=== PATIENT | male | born 1995 | race Caucasian/White ===

== ENCOUNTER 2016-09-29 00:25 | Emergency (ER) | payer OTHER ==
[2016-09-29 00:44] VITALS: BP 127/83
[2016-09-29] MEDS ORDERED: Tetracaine 0.5% Ophth Soln 15 ML Bottle EYELF STA (00:52)
[2016-09-29] MEDS ORDERED: Gentamicin 0.3% Ophth Soln 5 ML Bottle ONE (00:57)
--- NOTE | 2016-09-29 01:02 | EDM.PDOC ---
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 Denied trauma/FB, has itching in his left eye and his left eye is reddish(?)No Other medical issues at this time. Visual acuity was 20/20 bilat. Symptom Onset Date: 09/28/16 Symptom Onset Time: 21:00 Timing/Duration: Reports: Sudden onset Location: left eye Quality: Reports: Burning Severity: mild Improves with: Reports: None Worsens with: Reports: None Associated Symptoms (Eye): Reports: burning, itching - Related Data Allergies/ADRs: Allergies No Known Allergies Allergy (Verified 04/04/16 07:41) Home Meds: Ambulatory Orders Medication Instructions Recorded Confirmed Citalopram Hydrobromide [Celexa] 20 mg PO DAILY 09/09/15 09/29/16 Lisdexamfetamine [Vyvanse] 50 mg PO DAILY 09/09/15 09/29/16 Minocycline [Minocin] 100 mg PO DAILY 09/09/15 09/29/16 Past Medical History Other HEENT History: 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 Cardiovascular History: Reports: Heart murmur Respiratory History: Reports: Asthma, Other (see below) Other Respiratory History: as an only Gastrointestinal History: Reports: None Genitourinary History: Reports: None Musculoskeletal History: Reports: Other (see below) Other Musculoskeletal History: fractured hip 2014 Neurological History: Reports: Concussion, Headaches, chronic Psychiatric History: Reports: ADHD, Anxiety, Depression Endocrine/Metabolic History: Reports: None Hematologic History: Reports: None Immunologic History: Reports: None Oncologic (Cancer) History: Reports: None Dermatologic History: Reports: Other (see below) Other Dermatologic History: acne - Infectious Disease History Infectious Disease History: Reports: None - Past Surgical History Head Surgeries/Procedures: Reports: None GI Surgical History: Reports: None Endocrine Surgical History: Reports: None Musculoskeletal Surgical History: Reports: Other (see below) Other Musculoskeletal Surgeries/Procedures:: hip pinning Social & Family History - Family History Family Medical History: Noncontributory - Tobacco Use Smoking Status *Q: Current Every Day Smoker Years of Tobacco use: 3 Packs/Tins Daily: 0.3 Second Hand Smoke Exposure: Yes - Caffeine Use Caffeine Use: Reports: Soda - Alcohol Use Days Per Week of Alcohol Use: 2 Number of Drinks Per Day: 5 Total Drinks Per Week: 10 - Recreational Drug Use Recreational Drug Use: No ED ROS GENERAL - Review of Systems Review Of Systems: See Below Constitutional: Reports: no symptoms HEENT: Reports: Eye pain Respiratory: Reports: No Symptoms Cardiovascular: Reports: No symptoms Endocrine: Reports: no symptoms GI/Abdominal: Reports: No symptoms : Reports: no symptoms Musculoskeletal: Reports: no symptoms Skin: Reports: no symptoms Neurological: Reports: No Symptoms Hematologic/Lymphatic: Reports: no symptoms Immunologic: Reports: no symptoms ED EXAM GENERAL W FULL EYE - Physical Exam Exam: See Below Exam Limited By: No limitations General Appearance: alert, WD/WN, mild distress Eye Exam: left eye: conjunctival injection, bilateral eye: normal fundi Visual acuity (R) 20/: 20 Visual acuity (L) 20/: 20 With Correction: No Eyelids: left: lid everted for exam, bilateral: normal appearance Conjunctiva & Sclera: left: injected Cornea Exam: left: examined with flourescein (neg) Extraocular Movements: bilateral: intact Pupils: normal accommodation Pupillary Size: bilateral: 3 mm Pupillary Reaction: bilateral: brisk Anterior Chamber: bilateral: normal appearance Posterior Chamber: bilateral: normal funduscopic Ears: normal external exam, normal canal Nose: normal inspection, normal mucosa Throat/Mouth: Normal inspection, Normal lips, Normal teeth, Normal oropharynx Head: atraumatic, normocephalic Neck: normal inspection, supple, non-tender Respiratory/Chest: no respiratory distress, lungs clear, normal breath sounds, no accessory muscle use, chest non-tender Cardiovascular: normal peripheral pulses, regular rate, rhythm GI/Abdominal: normal bowel sounds, soft, non tender, no organomegaly (Male) Exam: Deferred (Female) Exam: Deferred Rectal (Males) Exam: Normal exam Rectal (Female) Exam: Deferred Back Exam: normal inspection, full range of motion Extremities: normal inspection, normal range of motion Neurological: alert, oriented, CN II-XII intact, normal cognition Psychiatric: normal affect, normal mood Skin Exam: Warm, Dry, Intact, Normal color, No rash Lymphatic: no adenopathy Course - Vital Signs Text/Narrative:: 21 years old w rebeca came to the ed due to 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 Denied trauma/FB, has itching in his left eye and his left eye is reddish(?)No Other medical issues at this time. Visual acuity was 20/20 bilat. Flouroscein test neg PE: Viral conjunctivitis left eye Impression: Viral conjunctivitis Tx: Gentamycin to prevent bacterial superinfection Plan: D/C with instructions Last Recorded V/S: Last Vital Signs Temp 36.9 C 09/29/16 00:30 Pulse 94 09/29/16 00:30 Resp 17 09/29/16 00:30 BP 127/83 09/29/16 00:30 Pulse Ox 100 09/29/16 00:30 - Orders/Labs/Meds Orders: Active Orders 24 hr Category Date Time Status Gentamicin [Garamycin 0.3% Ophth Soln] Med 09/29/16 09:00 Active 0.01 ml EYEBOTH TID Medication Orders Gentamicin Sulfate (Garamycin 0.3% Ophth Soln) 0.01 ml EYEBOTH TID RENA Meds: Medications Generic Name Dose Route Start Last Admin Trade Name Freq PRN Reason Stop Dose Admin Gentamicin Sulfate 0.01 ml 09/29/16 09:00 Garamycin 0.3% Ophth Soln EYEBOTH TID RENA Discontinued Medications Generic Name Dose Route Start Last Admin Trade Name Freq PRN Reason Stop Dose Admin Tetracaine 0.1 ml 09/29/16 00:52 Tetracaine 0.5% Ophth Soln EYELF 09/29/16 00:53 ASDIRECTED STA Departure - Departure Time of Disposition: 01:03 Disposition: Home, Self-Care 01 Condition: good Clinical Impression: Conjunctivitis Qualifiers: Conjunctivitis type: acute Acute conjunctivitis type: viral Laterality: left Qualified Code(s): B30.9 - Viral conjunctivitis, unspecified Instructions: Viral Conjunctivitis Referrals: PCP,None [Primary Care Provider] - Forms: ED Department Discharge Additional Instructions: Please apply the eye drops as recommended, please follow up, please come back to the ed if symptoms get worse acutely. - My Orders Last 24 Hours: My Active Orders 09/29/16 09:00 Gentamicin [Garamycin 0.3% Ophth Soln] 0.01 ml EYEBOTH TID - Assessment/Plan Last 24 Hours: My Active Orders 09/29/16 09:00 Gentamicin [Garamycin 0.3% Ophth Soln] 0.01 ml EYEBOTH TID
[2016-09-29] MEDS ORDERED: Gentamicin 0.3% Ophth Soln 5 ML Bottle EYEBOTH SCH (09:00)
== END 2016-09-29 01:13 | disposition home or self-care (01) ==
LOC: FB.ED 00:25
DX: B30.9 Viral conjunctivitis, unspecified (principal); J45.909 Unspecified asthma, uncomplicated; F41.9 Anxiety disorder, unspecified; F32.9 Major depressive disorder, single episode, unspecified; F17.210 Nicotine dependence, cigarettes, uncomplicated; Z79.899 Other long term (current) drug therapy
CPT/HCPCS: 99282; A9270

== ENCOUNTER 2018-01-10 01:38 | Emergency (ER) | payer OTHER ==
--- NOTE | 2018-01-10 02:10 | EDM.PDOC ---
ED HPI GENERAL MEDICAL PROBLEM - General Stated Complaint: RT SHOULDER PAIN Time Seen by Provider: 01/10/18 01:38 Source of Information: Reports: Patient, Family History Limitations: Reports: No Limitations - History of Present Illness INITIAL COMMENTS - FREE TEXT/NARRATIVE: 22 y.o.w.m came to the ed a few hours after he was wrestling with a friend and injured his right shoulder. Pt could not sleep becaus eof pain and thought his right shoulder "broke" which brought him to the ed. Pt has limited of his right shoulder due to pain. No other acute medical issues, no N/V/D of dizziness. BP 132/73 Pulse 75 RR 16 Pulse ox 98% on RA Temp 98.6 Onset Date: 01/09/18 Onset Time: 21:00 Duration: Hour(s):, Constant Location: Reports: Upper Extremity, Right Quality: Reports: Ache, Burning, Dull Severity: Mild Improves with: Reports: Rest Worsens with: Reports: Movement Context: Reports: Trauma Associated Symptoms: Reports: No Other Symptoms - Related Data Allergies Allergy/AdvReac Type Severity Reaction Status Date / Time No Known Allergies Allergy Verified 04/04/16 07:41 Home Meds: Home Meds Citalopram Hydrobromide [Celexa] 20 mg PO DAILY 09/09/15 [History] Lisdexamfetamine [Vyvanse] 50 mg PO DAILY 09/09/15 [History] Minocycline [Minocin] 100 mg PO DAILY 09/09/15 [History] Past Medical History Other HEENT History: 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 Cardiovascular History: Reports: Heart Murmur Respiratory History: Reports: Asthma, Other (See Below) Other Respiratory History: as an infant only Gastrointestinal History: Reports: None Genitourinary History: Reports: None Musculoskeletal History: Reports: Other (See Below) Other Musculoskeletal History: fractured hip 2014 Neurological History: Reports: Concussion, Headaches, Chronic Psychiatric History: Reports: ADHD, Anxiety, Depression Endocrine/Metabolic History: Reports: None Hematologic History: Reports: None Immunologic History: Reports: None Oncologic (Cancer) History: Reports: None Dermatologic History: Reports: Other (See Below) Other Dermatologic History: acne - Infectious Disease History Infectious Disease History: Reports: None - Past Surgical History Musculoskeletal Surgical History: Reports: Other (See Below) Social & Family History - Family History Family Medical History: Noncontributory - Caffeine Use Caffeine Use: Reports: Soda Review of Systems - Review of Systems Review Of Systems: See Below Constitutional: Reports: No Symptoms Eyes: Reports: No Symptoms Ears: Reports: No Symptoms Nose: Reports: No Symptoms Mouth/Throat: Reports: No Symptoms Respiratory: Reports: No Symptoms Cardiovascular: Reports: No Symptoms GI/Abdominal: Reports: No Symptoms Genitourinary: Reports: No Symptoms Musculoskeletal: Reports: Joint Pain (right shoulder) Skin: Reports: No Symptoms Neurological: Reports: No Symptoms Psychiatric: Reports: No Symptoms ED EXAM, GENERAL - Physical Exam Exam: See Below Exam Limited By: No Limitations General Appearance: Alert, WD/WN, Mild Distress Eye Exam: Bilateral Eye: Normal Inspection Ears: Normal External Exam Ear Exam: Bilateral Ear: Auricle Normal Nose: Normal Inspection, Normal Mucosa, No Blood Throat/Mouth: Normal Inspection, Normal Lips, Normal Teeth, Normal Gums, Normal Voice, No Airway Compromise Head: Atraumatic, Normocephalic Neck: Normal Inspection, Supple, Non-Tender, Full Range of Motion Respiratory/Chest: No Respiratory Distress, Lungs Clear, Normal Breath Sounds, Chest Non-Tender Cardiovascular: Normal Peripheral Pulses, Regular Rate, Rhythm, No Edema, No Gallop, No Rub Peripheral Pulses: 1+: Brachial (L) GI/Abdominal: Normal Bowel Sounds, Soft, Non-Tender, No Organomegaly, No Abnormal Bruit, No Mass, Pelvis Stable (Male) Exam: Deferred Rectal (Males) Exam: Deferred Back Exam: Normal Inspection, Full Range of Motion Extremities: Normal Inspection, Normal Range of Motion, Non-Tender, No Pedal Edema Neurological: Alert, Oriented, CN II-XII Intact, Normal Cognition, Normal Gait, No Motor/Sensory Deficits Psychiatric: Normal Affect, Normal Mood Skin Exam: Warm, Dry, Intact, Normal Color, No Rash Lymphatic: No Adenopathy Course - Vital Signs Text/Narrative:: 22 y.o.w.m came to the ed a few hours after he was wrestling with a friend and injured his right shoulder. Pt could not sleep becaus eof pain and thought his right shoulder "broke" which brought him to the ed. Pt has limited of his right shoulder due to pain. No other acute medical issues, no N/V/D of dizziness. BP 132/73 Pulse 75 RR 16 Pulse ox 98% on RA Temp 98.6\\ PE: WNWD W M with Right shoulder pain with movement Imaging: X Ray left shoulder/clavicula: NAD Impression: Left shoulder sprain Tx: ICE, Motrin, armsling Reexam: Improved Plan: D/C with instructions - Orders/Labs/Meds Orders: Active Orders 24 hr Category Date Time Status Shoulder Comp Rt [CR] Stat Exams 01/10/18 02:10 Taken Meds: Medications Discontinued Medications Generic Name Dose Route Start Last Admin Trade Name Eduardo PRN Reason Stop Dose Admin Ibuprofen 600 mg 01/10/18 02:19 01/10/18 02:29 Motrin PO 01/10/18 02:20 600 mg ONETIME ONE Administration Departure - Departure Time of Disposition: 02:20 Disposition: Home, Self-Care 01 Condition: Good Clinical Impression: Sprain of shoulder, right Qualifiers: Encounter type: initial encounter Shoulder sprain type: unspecified sprain Qualified Code(s): S43.401A - Unspecified sprain of right shoulder joint, initial encounter - Discharge Information Instructions: Shoulder Sprain Referrals: PCP,None [Primary Care Provider] - Additional Instructions: Please apply ice to right shoulder, please take motrin for pain, use arm sling for support, please f/u, come back if your symptoms get worse acutely - My Orders Last 24 Hours: My Active Orders 01/10/18 02:10 Shoulder Comp Rt [CR] Stat - Assessment/Plan Last 24 Hours: My Active Orders 01/10/18 02:10 Shoulder Comp Rt [CR] Stat
[2018-01-10] MEDS ORDERED: Ibuprofen 600 MG Tab PO ONE (02:19)
[2018-01-10 08:43] VITALS: BP 132/73
--- NOTE | 2018-01-10 11:04 | CR ---
INDICATION: Injury, pain in mid clavicle. RIGHT SHOULDER: Six images of the right shoulder were obtained in 4 projections and revealed no significant bone or joint abnormality. No fracture or dislocation was seen. If symptoms persist - if occult fracture site is suspected clinically, re- examination in 10-14 days may be helpful. If soft tissue injury is suspected clinically, CT or MRI may be helpful. MTDD
== END 2018-01-10 02:35 | disposition home or self-care (01) ==
LOC: FB.ED 01:38
DX: S43.401A Unspecified sprain of right shoulder joint, initial encounter (principal); J45.909 Unspecified asthma, uncomplicated; Z79.899 Other long term (current) drug therapy; F41.9 Anxiety disorder, unspecified; F32.9 Major depressive disorder, single episode, unspecified; X58.XXXA Exposure to other specified factors, initial encounter; Y93.72 Activity, wrestling
CPT/HCPCS: 73030; 99283; A9270

== ENCOUNTER 2021-05-22 17:00 | Emergency (ER) | payer BC, OTHER ==
[2021-05-22 17:27] VITALS: BP 131/86; PULSE 63
[2021-05-22] MEDS ORDERED: Sodium Chloride 0.9% 10 ML Syringe FLUSH PRN (17:30)
[2021-05-22] MEDS ORDERED: Ketorolac 30 MG/ML SDV IVPUSH STA (17:32)
[2021-05-22] MEDS ORDERED: Ondansetron 4 MG/2 ML SDV IVPUSH STA (17:32)
[2021-05-22] MEDS ORDERED: Sodium Chloride 0.9% 1,000 ML IV SCH (17:45)
[2021-05-22] MEDS ORDERED: Sulfamethoxazole/Trimethoprim 800-160 MG Tab PO STA (18:36)
--- NOTE | 2021-05-22 18:36 | EDM.PDOC ---
ED HPI GENERAL MEDICAL PROBLEM - General Chief Complaint: Abdominal Pain Stated Complaint: STOMACH,LIVER PAIN/BLOOD IN URINE Time Seen by Provider: 05/22/21 17:10 Source of Information: Reports: Patient History Limitations: Reports: No Limitations - History of Present Illness INITIAL COMMENTS - FREE TEXT/NARRATIVE: Patient presented to the ED because Rt flank pain, chills,nausea but no vomiting for 2 days. The pain is 7/10, had hematuria today which resolved. He also had loose stools but no abdominal pain. 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 Cardiovascular History: Reports: Heart Murmur Respiratory History: Reports: Asthma, Other (See Below) Other Respiratory History: as an only Gastrointestinal History: Reports: None Genitourinary History: Reports: None Musculoskeletal History: Reports: Other (See Below) Other Musculoskeletal History: fractured hip 2013 Neurological History: Reports: Concussion, Headaches, Chronic Psychiatric History: Reports: ADHD, Anxiety, Depression Endocrine/Metabolic History: Reports: None Hematologic History: Reports: None Immunologic History: Reports: None Oncologic (Cancer) History: Reports: None Dermatologic History: Reports: Other (See Below) Other Dermatologic History: acne - Infectious Disease History Infectious Disease History: Reports: None - Past Surgical History Head Surgeries/Procedures: Reports: None GI Surgical History: Reports: None Endocrine Surgical History: Reports: None Musculoskeletal Surgical History: Reports: Other (See Below) Other Musculoskeletal Surgeries/Procedures:: Surgery for fractured left hip, 2013. Social & Family History - Family History Family Medical History: No Pertinent Family History - Tobacco Use Tobacco Use Status *Q: Never Tobacco User - Caffeine Use Caffeine Use: Reports: Coffee, Energy Drinks, Soda - Recreational Drug Use Recreational Drug Use: Yes Recreational Drug Type: Reports: Marijuana/Hashish ED ROS GENERAL - Review of Systems Review Of Systems: See Below Constitutional: Reports: No Symptoms HEENT: Reports: No Symptoms Respiratory: Reports: No Symptoms Cardiovascular: Reports: No Symptoms Endocrine: Reports: No Symptoms GI/Abdominal: Reports: Abdominal Pain : Reports: No Symptoms Musculoskeletal: Reports: No Symptoms Skin: Reports: No Symptoms Neurological: Reports: No Symptoms Psychiatric: Reports: No Symptoms Hematologic/Lymphatic: Reports: No Symptoms ED EXAM, GI/ABD - Physical Exam Exam: See Below Exam Limited By: No Limitations General Appearance: Alert, No Apparent Distress Ears: Normal External Exam, Normal Canal Nose: Normal Inspection, Normal Mucosa, No Blood Throat/Mouth: Normal Inspection, Normal Lips, Normal Teeth, Normal Gums, Normal Oropharynx, Normal Voice Head: Atraumatic, Normocephalic Neck: Normal Inspection, Supple, Non-Tender, Full Range of Motion Respiratory/Chest: No Respiratory Distress, Lungs Clear, Normal Breath Sounds, No Accessory Muscle Use, Chest Non-Tender Cardiovascular: Normal Peripheral Pulses, Regular Rate, Rhythm, No Edema, No Gallop, No JVD, No Murmur, No Rub GI/Abdominal Exam: Normal Bowel Sounds, Soft, No Distention, Other (RCVAT) Back Exam: Normal Inspection, Full Range of Motion Extremities: Normal Inspection, Normal Range of Motion, No Pedal Edema Neurological: Alert, Oriented, CN II-XII Intact Course - Vital Signs Text/Narrative:: Lab/Abd-pelvis Ct result was reviewed and discussed with patient NS 1 L bolus Zofran 4 mg Iv x1 Toradol 30 mg IV x1 Bactrim DS 1 PO x 1 Last Recorded V/S: Last Vital Signs Temp 35.9 C L 05/22/21 17:01 Pulse 63 05/22/21 17:01 Resp 20 05/22/21 17:01 BP 131/86 05/22/21 17:01 Pulse Ox 100 05/22/21 17:01 - Orders/Labs/Meds Orders: Active Orders 24 hr Category Date Time Status Abdomen Pelvis wo Cont [CT] Stat Exams 05/22/21 17:31 Taken CULTURE URINE [RM] Stat Lab 05/22/21 17:18 Received Saline Lock Insert [OM.PC] Routine Oth 05/22/21 17:30 Ordered Labs: Laboratory Tests 05/22/21 05/22/21 05/22/21 Range/Units 17:18 17:42 17:42 WBC (3.2-10.1) x10-3/uL RBC (3.90-5.90) x10(6)uL Hgb (12.9-17.7) g/dL Hct (38.3-50.1) % MCV (80.8-98.7) fL MCH (27.0-33.3) pg MCHC (28.7-35.3) g/dL RDW (12.4-15.0) % Plt Count (117-477) x10(3)uL MPV (6.7-11.0) fL Neut % (Auto) (40.3-71.8) % Lymph % (Auto) (15.8-45.3) % Starr % (Auto) (5.5-15.2) % Eos % (Auto) (0.1-6.8) % Baso % (Auto) (0.3-3.8) % Neut # (Auto) (1.7-6.9) x10-3/uL Lymph # (Auto) (0.5-4.5) x10-3/uL Starr # (Auto) (0.0-1.2) x10-3/uL Eos # (Auto) (0.0-0.6) x10-3/uL Baso # (Auto) (0.0-0.3) x10-3/uL Sodium 138 (135-145) mmol/L Potassium 4.4 (3.5-5.3) mmol/L Chloride 101 (100-110) mmol/L Carbon Dioxide 29 (21-32) mmol/L BUN 23 H (7-18) mg/dL Creatinine 1.2 (0.70-1.30) mg/dL Est Cr Clr Drug Dosing 87.22 mL/min Estimated GFR (MDRD) > 60 (>60) BUN/Creatinine Ratio 19.2 (9-20) Glucose 94 (80-116) mg/dL Calcium 9.2 (8.6-10.2) mg/dL Total Bilirubin 0.3 (0.1-1.3) mg/dL AST 23 (5-25) IU/L ALT 80 H (12-36) U/L Alkaline Phosphatase 102 (56-112) IU/L Total Protein 8.1 H (6.0-8.0) g/dL Albumin 4.3 (3.5-5.2) g/dL Globulin 3.8 g/dL Albumin/Globulin Ratio 1.1 Amylase 75 (25-115) U/L Lipase 70 L (73-393) U/L Urine Color Brown (YELLOW) Urine Appearance Cloudy (CLEAR) Urine pH 5.0 (5.0-6.5) Ur Specific Riner 1.020 (1.010-1.025) Urine Protein 100 H (NEGATIVE) mg/dL Urine Glucose (UA) Normal (NORMAL) mg/dL Urine Ketones 15 H (NEGATIVE) mg/dL Urine Occult Blood Large H (NEGATIVE) Urine Nitrite Positive H (NEGATIVE) Urine Bilirubin Small H (NEGATIVE) Urine Urobilinogen 1 H (NEGATIVE) mg/dL Ur Leukocyte Esterase Moderate H (NEGATIVE) Urine RBC Packed H (0-5) Urine WBC 5-10 H (0-5) Ur Squamous Epith Cells Few H (NS,R,O) Urine Bacteria Moderate H (NS) 05/22/ Range/Units 17:42 WBC 9.5 (3.2-10.1) x10-3/uL RBC 4.76 (3.90-5.90) x10(6)uL Hgb 14.5 (12.9-17.7) g/dL Hct 43.0 (38.3-50.1) % MCV 90.3 (80.8-98.7) fL MCH 30.5 (27.0-33.3) pg MCHC 33.8 (28.7-35.3) g/dL RDW 12.1 L (12.4-15.0) % Plt Count 289 (117-477) x10(3)uL MPV 8.9 (6.7-11.0) fL Neut % (Auto) 70.1 (40.3-71.8) % Lymph % (Auto) 19.3 (15.8-45.3) % Starr % (Auto) 7.6 (5.5-15.2) % Eos % (Auto) 2.4 (0.1-6.8) % Baso % (Auto) 0.6 (0.3-3.8) % Neut # (Auto) 6.6 (1.7-6.9) x10-3/uL Lymph # (Auto) 1.8 (0.5-4.5) x10-3/uL Starr # (Auto) 0.7 (0.0-1.2) x10-3/uL Eos # (Auto) 0.2 (0.0-0.6) x10-3/uL Baso # (Auto) 0.1 (0.0-0.3) x10-3/uL Sodium (135-145) mmol/L Potassium (3.5-5.3) mmol/L Chloride (100-110) mmol/L Carbon Dioxide (21-32) mmol/L BUN (7-18) mg/dL Creatinine (0.70-1.30) mg/dL Est Cr Clr Drug Dosing mL/min Estimated GFR (MDRD) (>60) BUN/Creatinine Ratio (9-20) Glucose (80-116) mg/dL Calcium (8.6-10.2) mg/dL Total Bilirubin (0.1-1.3) mg/dL AST (5-25) IU/L ALT (12-36) U/L Alkaline Phosphatase (56-112) IU/L Total Protein (6.0-8.0) g/dL Albumin (3.5-5.2) g/dL Globulin g/dL Albumin/Globulin Ratio Amylase (25-115) U/L Lipase (73-393) U/L Urine Color (YELLOW) Urine Appearance (CLEAR) Urine pH (5.0-6.5) Ur Specific Riner (1.010-1.025) Urine Protein (NEGATIVE) mg/dL Urine Glucose (UA) (NORMAL) mg/dL Urine Ketones (NEGATIVE) mg/dL Urine Occult Blood (NEGATIVE) Urine Nitrite (NEGATIVE) Urine Bilirubin (NEGATIVE) Urine Urobilinogen (NEGATIVE) mg/dL Ur Leukocyte Esterase (NEGATIVE) Urine RBC (0-5) Urine WBC (0-5) Ur Squamous Epith Cells (NS,R,O) Urine Bacteria (NS) Meds: Medications Discontinued Medications Generic Name Dose Route Start Last Admin Trade Name Freq PRN Reason Stop Dose Admin Sodium Chloride 1,000 mls @ 999 mls/hr 05/22/21 17:45 05/22/21 18:21 Normal Saline IV 999 mls/hr ASDIRECTED RENA Administration Ketorolac Tromethamine 30 mg 05/22/21 17:32 05/22/21 18:22 Ketorolac 30 Mg/Ml Sdv IVPUSH 05/22/21 17:33 30 mg NOW STA Administration Ondansetron HCl 4 mg 05/22/21 17:32 05/22/21 18:22 Ondansetron 4 Mg/2 Ml Sdv IVPUSH 05/22/21 17:33 4 mg NOW STA Administration Sodium Chloride 10 ml 05/22/21 17:30 05/22/21 18:20 Sodium Chloride 0.9% 10 Ml Syringe FLUSH 10 ml ASDIRECTED PRN Administration Keep Vein Open Trimethoprim/Sulfamethoxazole 1 tab 05/22/21 18:36 05/22/21 19:08 Sulfamethoxazole/Trimethoprim 800-160 Mg Tab PO 05/22/21 18:37 1 tab NOW STA Administration Departure - Departure Time of Disposition: 18:35 Disposition: Home, Self-Care 01 Condition: Good Clinical Impression: UTI (urinary tract infection), Abdominal pain - Discharge Information Prescriptions: Sulfamethoxazole/Trimethoprim [Bactrim Ds Tablet] 1 each PO BID #7 tablet Instructions: Urinary Tract Infection, Adult, [id number], Abdominal Pain, Adult, [id number] Referrals: Aydin Muse MD [Primary Care Provider] - Forms: ED Department Discharge Additional Instructions: please read discharge instructions on UTI and abdominal pain Drink lots of fluids Bactrim DS twice daily for 7 days Ibuprofen 800 mg with tylenol 1000 mg every 8 hours as needed for pain Folow up as needed Sepsis Event Note (ED) - Evaluation Sepsis Screening Result: No Definite Risk - Focused Exam Vital Signs: Vital Signs Temp Pulse Resp BP Pulse Ox 05/22/21 17:01 35.9 C L 63 20 131/86 100 - My Orders Last 24 Hours: My Active Orders 05/22/21 17:18 CULTURE URINE [RM] Stat 05/22/21 17:30 Saline Lock Insert [OM.PC] Routine 05/22/21 17:31 Abdomen Pelvis wo Cont [CT] Stat - Assessment/Plan Last 24 Hours: My Active Orders 05/22/21 17:18 CULTURE URINE [RM] Stat 05/22/21 17:30 Saline Lock Insert [OM.PC] Routine 05/22/21 17:31 Abdomen Pelvis wo Cont [CT] Stat
== END 2021-05-22 19:14 | disposition home or self-care (01) ==
LOC: FB.ED 17:00 → EDSEX 17:00 → FB.ED 19:14
DX: N39.0 Urinary tract infection, site not specified (principal)
CPT/HCPCS: 36415; 74176; 80053; 81001; 82150; 83690; 85025; 87086; 96374; 96375; 99284-25; A9270-GY; J1885; J2405; J7030

== ENCOUNTER 2021-05-23 08:47 | Observation (INO) | payer BC ==
--- NOTE | 2021-05-23 09:08 | EDM.PDOC ---
ED HPI GENERAL MEDICAL PROBLEM - General Chief Complaint: Flank Pain Stated Complaint: liver/kidney problem Time Seen by Provider: 05/23/21 09:00 Source of Information: Reports: Patient History Limitations: Reports: No Limitations - History of Present Illness INITIAL COMMENTS - FREE TEXT/NARRATIVE: 26-year-old female (male transitioning to female) who presents to the emergency department this morning via private vehicle with a friend secondary to severe right mid back and flank and abdominal pain. She actually presented to the walk- in clinic and was sent directly from there to our emergency department. She reports that the pain began at 7 AM and was associated with diaphoresis and nausea but no vomiting. The pain is been a constant pain and she rates it as a 10/10. He did have a bowel movement this morning that was normal she reports she initially developed the pain about 3 days ago and it was mild and intermittent. She was seen here yesterday in the emergency department secondary to the right mid back, flank and abdominal pain and it was associated with hematuria. The hematuria has also been intermittent over the past 3 days as well. She had a fairly complete workup which included blood tests, urine test and a CT scan of her abdomen and pelvis. The blood tests were all reassuringly normal. Urinalysis had a packed field of red blood cells, some white blood cells and bacteria. Currently this was not set up for culture yesterday but the specimen is still in the lab and I had the lab set up a culture on urine from yesterday. Today, the pain was much worse than yesterday. She does report a history of previous kidney stones. She has subjectively had a fever and some chills but from what she describes it sounds like she is describing the diaphoretic episode that she has been intermittently having as well. Been no measured fever at home. The patient has received Toradol 30 mg IV and Zofran 4 mg IV and she is now reporting the pain is an 8/10. I reviewed the patient's records and the patient is currently getting Dilaudid 1 mg IV. No cough. No rashes. No dysuria. There are no other associated signs or symptoms. There are no other modifying factors. Onset: Other (3 days ago) Duration: Getting Worse Location: Reports: Abdomen, Back, Other (Right mid back right flank and right abdomen) Quality: Reports: Sharp, Stabbing Severity: Severe Improves with: Reports: None Worsens with: Reports: Other (Palpation of the area) Context: Reports: Other (As above) Associated Symptoms: Reports: No Other Symptoms (Nothing except as above) Treatments PUMP ASSEMBLER: Reports: Other (see below) (Nothing today. The patient did take Bactrim DS one yesterday in the emergency department.) Right Flank Pain Score (Numeric/FACES): 10 - Related Data Allergies Allergy/AdvReac Type Severity Reaction Status Date / Time No Known Allergies Allergy Verified 01/10/18 08:40 Home Meds: Home Meds Citalopram Hydrobromide [Celexa] 40 mg PO DAILY 05/22/21 [History] Sulfamethoxazole/Trimethoprim [Bactrim Ds Tablet] 1 each PO BID #7 tablet 05/22/21 [Rx] estradioL [Estradiol] 2 mg PO DAILY 05/22/21 [History] Past Medical History Cardiovascular History: Reports: Heart Murmur Respiratory History: Reports: Asthma Genitourinary History: Reports: Renal Calculus Musculoskeletal History: Reports: Fracture (fractured hip 2013) Neurological History: Reports: Concussion, Headaches, Chronic Psychiatric History: Reports: ADHD, Anxiety, Depression Dermatologic History: Reports: Other (See Below) Other Dermatologic History: acne - Infectious Disease History Infectious Disease History: Reports: None - Past Surgical History Musculoskeletal Surgical History: Reports: Other (See Below) Other Musculoskeletal Surgeries/Procedures:: Surgery for fractured left hip, 2013. Social & Family History - Tobacco Use Tobacco Use Status *Q: Never Tobacco User - Caffeine Use Caffeine Use: Reports: Coffee, Energy Drinks, Soda - Alcohol Use Alcohol Use History: Yes Alcohol Use in Last Twelve Months: Yes Alcohol Use Comment: States no alcohol use for the past week. 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 On HRT. ED ROS GENERAL - Review of Systems Review Of Systems: See Below Constitutional: Reports: Chills, Diaphoresis HEENT: Denies: Nose Pain, Throat Pain Respiratory: Denies: Shortness of Breath, Wheezing Cardiovascular: Denies: Chest Pain, Lightheadedness Endocrine: Denies: Fatigue GI/Abdominal: Reports: Abdominal Pain, Nausea. Denies: Vomiting : Reports: Flank Pain, Hematuria. Denies: Dysuria Musculoskeletal: Reports: Back Pain (Right mid back) Skin: Reports: Diaphoresis. Denies: Rash, Wound Neurological: Denies: Confusion, Dizziness Hematologic/Lymphatic: Denies: Easy Bleeding, Easy Bruising ED EXAM, GI/ABD - Physical Exam Exam: See Below Exam Limited By: No Limitations General Appearance: Alert, WD/WN, Severe Distress (Appears in severe pain. No respiratory distress.) Eyes: Bilateral: Normal Appearance, EOMI Ears: Normal External Exam, Hearing Grossly Normal Nose: Normal Inspection, Normal Mucosa, No Blood Throat/Mouth: Normal Inspection, Normal Lips, Normal Oropharynx, Normal Voice, No Airway Compromise Head: Atraumatic, Normocephalic Neck: Normal Inspection, Supple, Non-Tender, Full Range of Motion Respiratory/Chest: No Respiratory Distress, Lungs Clear, Normal Breath Sounds, No Accessory Muscle Use, Chest Non-Tender Cardiovascular: Normal Peripheral Pulses, Regular Rate, Rhythm, No Murmur GI/Abdominal Exam: Normal Bowel Sounds, Soft, No Mass, Tender (Tender in the right midabdomen). No: Guarding, Rebound Back Exam: Full Range of Motion, CVA Tenderness (R). No: Muscle Spasm Extremities: Normal Inspection, Normal Range of Motion, Non-Tender, Normal Capillary Refill, No Pedal Edema Neurological: Alert, Oriented, CN II-XII Intact, Normal Cognition, No Motor/Sensory Deficits Psychiatric: Normal Affect Skin Exam: Intact, Normal Color, No Rash, Cool, Diaphoretic Course - Vital Signs Last Recorded V/S: Last Vital Signs Temp 36.7 C 05/23/21 08:47 Pulse 105 H 05/23/21 08:47 Resp 20 05/23/21 08:47 BP 134/98 H 05/23/21 08:47 Pulse Ox 100 05/23/21 08:47 - Orders/Labs/Meds Orders: Active Orders 24 hr Category Date Time Status Admission Status [Patient Status] [ADT] Routine ADT 05/23/21 12:27 Ordered Abdomen Pelvis w Cont [CT] Stat Exams 05/23/21 10:42 Taken CORONAVIRUS COVID-19 MAGY [MOLEC] Stat Lab 05/23/21 10:52 Received CULTURE URINE [RM] Stat Lab 05/23/21 09:20 Received Promethazine [Phenergan] 25 mg Med 05/23/21 12:23 Ordered Sodium Chloride 0.9% [Normal Saline] 50 ml IV ONETIME Sodium Chloride 0.9% [Normal Saline] 1,000 ml Med 05/23/21 10:30 Active IV ASDIRECTED Tamsulosin [Flomax] Med 05/23/21 12:28 Once 0.4 mg PO ONETIME ONE Medication Orders Sodium Chloride (Normal Saline) 1,000 mls @ 150 mls/hr IV ASDIRECTED RENA Last Admin: 05/23/21 10:32 Dose: 150 mls/hr Documented by: KOSTAS Promethazine HCl 25 mg/ Sodium (Chloride) 51 mls @ 200 mls/hr IV ONETIME ONE Stop: 05/23/21 12:38 Tamsulosin HCl (Tamsulosin 0.4 Mg Cap.Er) 0.4 mg PO ONETIME ONE Stop: 05/23/21 12:29 Labs: Laboratory Tests 05/23/21 05/23/21 05/23/21 Range/Units 09:20 09:25 09:25 WBC 11.7 H (3.0-10.3) x10-3/uL RBC 4.66 (3.60-5.20) x10(6)uL Hgb 14.4 (11.4-15.5) g/dL Hct 42.4 (34.2-48.2) % MCV 91.0 (76.7-100.5) fL MCH 30.9 (23.9-33.9) pg MCHC 34.0 (31.9-34.8) g/dL RDW 12.2 L (12.3-16.5) % Plt Count 276 (151-488) x10(3)uL MPV 8.7 (7.1-12.4) fL Neut % (Auto) 82.3 H (30.8-76.2) % Lymph % (Auto) 10.0 L (18.4-52.1) % Alfalfa % (Auto) 5.7 (4.4-15.7) % Eos % (Auto) 1.5 (0.6-8.1) % Baso % (Auto) 0.5 (0.2-1.5) % Neut # (Auto) 9.6 H (1.5-6.3) x10-3/uL Lymph # (Auto) 1.2 (1.0-4.4) x10-3/uL Alfalfa # (Auto) 0.7 (0.3-1.0) x10-3/uL Eos # (Auto) 0.2 (0.0-0.8) x10-3/uL Baso # (Auto) 0.1 (0.0-0.1) x10-3/uL Sodium 139 (135-145) mmol/L Potassium 4.2 (3.5-5.3) mmol/L Chloride 105 (100-110) mmol/L Carbon Dioxide 25 (21-32) mmol/L BUN 18 (7-18) mg/dL Creatinine 1.3 H (0.55-1.02) mg/dL Est Cr Clr Drug Dosing 63.77 mL/min Estimated GFR (MDRD) 50 L (>60) BUN/Creatinine Ratio 13.8 (9-20) Glucose 107 (80-116) mg/dL Calcium 8.8 (8.6-10.2) mg/dL Magnesium 2.0 (1.8-2.5) mg/dL Total Bilirubin 0.3 (0.1-1.3) mg/dL AST 25 (5-25) IU/L ALT 73 H (12-36) U/L Alkaline Phosphatase 93 (56-112) IU/L C-Reactive Protein (0.5-0.9) mg/dL Total Protein 7.8 (6.0-8.0) g/dL Albumin 4.0 (3.5-5.2) g/dL Globulin 3.8 g/dL Albumin/Globulin Ratio 1.1 Urine Color Yellow (YELLOW) Urine Appearance Slightly cloudy (CLEAR) Urine pH 5.0 (5.0-6.5) Ur Specific [place] 1.020 (1.010-1.025) Urine Protein Negative (NEGATIVE) mg/dL Urine Glucose (UA) Normal (NORMAL) mg/dL Urine Ketones Negative (NEGATIVE) mg/dL Urine Occult Blood Moderate H (NEGATIVE) Urine Nitrite Negative (NEGATIVE) Urine Bilirubin Negative (NEGATIVE) Urine Urobilinogen Normal (NEGATIVE) mg/dL Ur Leukocyte Esterase Negative (NEGATIVE) Urine RBC 10-20 H (0-5) Urine WBC 5-10 H (0-5) Ur Squamous Epith Cells Moderate H (NS,R,O) Urine Bacteria Moderate H (NS) Urine Mucus Moderate H (NS) 11/19/21 Range/Units 09:25 WBC (3.0-10.3) x10-3/uL RBC (3.60-5.20) x10(6)uL Hgb (11.4-15.5) g/dL Hct (34.2-48.2) % MCV (76.7-100.5) fL MCH (23.9-33.9) pg MCHC (31.9-34.8) g/dL RDW (12.3-16.5) % Plt Count (151-488) x10(3)uL MPV (7.1-12.4) fL Neut % (Auto) (30.8-76.2) % Lymph % (Auto) (18.4-52.1) % Alfalfa % (Auto) (4.4-15.7) % Eos % (Auto) (0.6-8.1) % Baso % (Auto) (0.2-1.5) % Neut # (Auto) (1.5-6.3) x10-3/uL Lymph # (Auto) (1.0-4.4) x10-3/uL Alfalfa # (Auto) (0.3-1.0) x10-3/uL Eos # (Auto) (0.0-0.8) x10-3/uL Baso # (Auto) (0.0-0.1) x10-3/uL Sodium (135-145) mmol/L Potassium (3.5-5.3) mmol/L Chloride (100-110) mmol/L Carbon Dioxide (21-32) mmol/L BUN (7-18) mg/dL Creatinine (0.55-1.02) mg/dL Est Cr Clr Drug Dosing mL/min Estimated GFR (MDRD) (>60) BUN/Creatinine Ratio (9-20) Glucose (80-116) mg/dL Calcium (8.6-10.2) mg/dL Magnesium (1.8-2.5) mg/dL Total Bilirubin (0.1-1.3) mg/dL AST (5-25) IU/L ALT (12-36) U/L Alkaline Phosphatase (56-112) IU/L C-Reactive Protein 1.4 H (0.5-0.9) mg/dL Total Protein (6.0-8.0) g/dL Albumin (3.5-5.2) g/dL Globulin g/dL Albumin/Globulin Ratio Urine Color (YELLOW) Urine Appearance (CLEAR) Urine pH (5.0-6.5) Ur Specific [place] (1.010-1.025) Urine Protein (NEGATIVE) mg/dL Urine Glucose (UA) (NORMAL) mg/dL Urine Ketones (NEGATIVE) mg/dL Urine Occult Blood (NEGATIVE) Urine Nitrite (NEGATIVE) Urine Bilirubin (NEGATIVE) Urine Urobilinogen (NEGATIVE) mg/dL Ur Leukocyte Esterase (NEGATIVE) Urine RBC (0-5) Urine WBC (0-5) Ur Squamous Epith Cells (NS,R,O) Urine Bacteria (NS) Urine Mucus (NS) Meds: Medications Generic Name Dose Route Start Last Admin Trade Name Freq PRN Reason Stop Dose Admin Sodium Chloride 1,000 mls @ 150 mls/hr 05/23/21 10:30 05/23/21 10:32 Normal Saline IV 150 mls/hr ASDIRECTED RENA Administration Promethazine HCl 25 mg/ Sodium 51 mls @ 200 mls/hr 05/23/21 12:23 Chloride IV 05/23/21 12:38 ONETIME ONE Tamsulosin HCl 0.4 mg 05/23/21 12:28 Tamsulosin 0.4 Mg Cap.Er PO 05/23/21 12:29 ONETIME ONE Discontinued Medications Generic Name Dose Route Start Last Admin Trade Name Eduardo PRN Reason Stop Dose Admin Ceftriaxone Sodium 1 gm 05/23/21 10:19 05/23/21 10:31 Ceftriaxone 1 Gm Vial IVPUSH 05/23/21 10:20 1 gm ONETIME ONE Administration Hydromorphone HCl 1 mg 05/23/21 09:12 05/23/21 09:26 Hydromorphone 2 Mg/Ml Sdv IVPUSH 05/23/21 09:13 1 mg ONETIME ONE Administration Hydromorphone HCl 1 mg 05/23/21 10:26 05/23/21 10:31 Hydromorphone 2 Mg/Ml Sdv IVPUSH 05/23/21 10:27 1 mg ONETIME ONE Administration Sodium Chloride 1,000 mls @ 999 mls/hr 05/23/21 09:12 05/23/21 09:15 Normal Saline IV 05/23/21 10:12 999 mls/hr .BOLUS ONE Administration Iopamidol 100 ml 05/23/21 11:14 05/23/21 11:30 Iopamidol 755 Mg/Ml 100 Ml Bottle IV 05/23/21 11:15 100 ml . DIRECTED ONE Administration Ketorolac Tromethamine 30 mg 05/23/21 09:10 05/23/21 09:15 Ketorolac 30 Mg/Ml Sdv IVPUSH 05/23/21 09:11 30 mg ONETIME ONE Administration Ondansetron HCl 4 mg 05/23/21 09:10 05/23/21 09:15 Ondansetron 4 Mg/2 Ml Sdv IVPUSH 05/23/21 09:11 4 mg ONETIME ONE Administration - Re-Assessments/Exams Free Text/Narrative Re-Assessment/Exam: 05/23/21 10:15: The patient's blood tests were essentially unchanged from yesterday. Urinalysis had continued red cells in the urine as well as some white cells and bacteria. I did review the patient's CT scan from yesterday as well. I called and discussed the patient's case with Dr. Steele, urologist at [facility] in [place], he did not feel that any further diagnostic testing was needed at this time. He recommended that we treat the patient with antibiotics for possible pyelonephritis. He also felt that the patient should follow-up with the primary provider. 05/23/21 10:35: Upon reevaluation of the patient, he is having a recurrence in h er pain up to an 8/10. She looks quite uncomfortable. I we'll give the patient another milligram of Dilaudid IV. I did discuss disposition with the patient. At this point, she does not look like she would be able to be discharged because of her level of pain and would most probably need recurrent doses of IV pain medication and tentatively was thinking admission for pain control and IV antibiotics. 05/23/21 10:40: Discussed the patient's case with Dr. Hercules, hospitalist at [facility] and she would be agreeable to admitting the patient. I am sending the patient over for CT scan of the abdomen and pelvis with IV contrast to further assess for ulcers of pain and hematuria. I think it is possible this could represent renal infarction. 05/23/21 10:45: She had received the Dilaudid and is feeling better and patient now is wondering whether she be able to go home and try occasionally at home we are awaiting the CT scan of the abdomen and pelvis with IV contrast and would consider this if the CT scan comes back negative. 05/23/21 12:25: The CT scan of the abdomen and pelvis with IV contrast was read by Dr. Ernandez and he reviewed yesterday's CT scan as well as today and he feels that the patient does have a 3 mm stone in the distal right ureter and also some ureteral dilation on that side as well. There is also a calcified structure and a cystic structure adjacent to or attached to the gallbladder of unclear etiology. The contrasted study did show delayed nephrogram on the right (in fact, it had not yet shown up as a nephrogram when he had called me with the report). Also, as I reevaluating the patient, she is having more pain up to a 6- 7/10 and nausea with near emesis. She now does not feel that she can go home and I would agree that admission is warranted for pain control and nausea control. I will order the patient additional nausea medication and I will also order additional pain medication and Flomax to be given. I have discussed all this with Dr. Hercules in the patient will be going to the floor for admission on observation status. Departure - Departure Time of Disposition: 12:30 Disposition: Refer to Observation Condition: Fair (Stable.) Clinical Impression: Renal colic on right side, Ureteral calculus, right, Uncontrolled pain, Uncontrollable nausea and vomiting - Discharge Information Referrals: Aydin Muse MD [Primary Care Provider] - Forms: ED Department Discharge Sepsis Event Note (ED) - Evaluation Sepsis Screening Result: No Definite Risk - Focused Exam Vital Signs: Vital Signs Temp Pulse Resp BP Pulse Ox 05/23/21 08:47 36.7 C 105 H 20 134/98 H 100 - My Orders Last 24 Hours: My Active Orders 05/23/21 09:20 CULTURE URINE [RM] Stat 05/23/21 10:30 Sodium Chloride 0.9% [Normal Saline] 1,000 ml IV ASDIRECTED 05/23/21 10:42 Abdomen Pelvis w Cont [CT] Stat 05/23/21 10:52 CORONAVIRUS COVID-19 MAGY [MOLEC] Stat 05/23/21 12:23 Promethazine [Phenergan] 25 mg Sodium Chloride 0.9% [Normal Saline] 50 ml IV ONETIME 05/23/21 12:27 Admission Status [Patient Status] [ADT] Routine 05/23/21 12:28 Tamsulosin [Flomax] 0.4 mg PO ONETIME ONE - Assessment/Plan Last 24 Hours: My Active Orders 05/23/21 09:20 CULTURE URINE [RM] Stat 05/23/21 10:30 Sodium Chloride 0.9% [Normal Saline] 1,000 ml IV ASDIRECTED 05/23/21 10:42 Abdomen Pelvis w Cont [CT] Stat 05/23/21 10:52 CORONAVIRUS COVID-19 MAGY [MOLEC] Stat 05/23/21 12:23 Promethazine [Phenergan] 25 mg Sodium Chloride 0.9% [Normal Saline] 50 ml IV ONETIME 05/23/21 12:27 Admission Status [Patient Status] [ADT] Routine 05/23/21 12:28 Tamsulosin [Flomax] 0.4 mg PO ONETIME ONE
[2021-05-23] MEDS ORDERED: Ondansetron 4 MG/2 ML SDV IVPUSH ONE (09:10)
[2021-05-23] MEDS ORDERED: Ketorolac 30 MG/ML SDV IVPUSH ONE (09:10)
[2021-05-23] MEDS ORDERED: HYDROmorphone 2 MG/ML SDV IVPUSH ONE ×3 (09:12→12:34)
[2021-05-23] MEDS ORDERED: Sodium Chloride 0.9% 1,000 ML IV ONE (09:12)
[2021-05-23] MEDS ORDERED: cefTRIAXone 1 GM Vial IVPUSH ONE (10:19)
[2021-05-23] MEDS: Sodium Chloride 0.9% 1,000 ML IV SCH ×3 (10:32→23:30)
[2021-05-23] MEDS ORDERED: Iopamidol 755 Mg/ML 100 ML Bottle IV ONE (11:14)
[2021-05-23] MEDS ORDERED: Promethazine 25 MG in Sodium Chloride 0.9% 50 ML IV ONE (12:23)
[2021-05-23] MEDS ORDERED: Tamsulosin 0.4 MG Cap.ER PO ONE (12:28)
--- NOTE | 2021-05-23 13:15 | CT ---
INDICATION: Hematuria. Right flank pain. CT ABDOMEN AND PELVIS WITH CONTRAST WITH DELAYS FOR CT-UROGRAM: Spiral 3.75 mm axial sections were obtained through the abdomen and pelvis with 100 mL Isovue- 370 at 2 mL/second at 110 second delay, 6 minute delay, 21 minute delay on 05/23/21 with sagittal and coronal reconstructions and compared with the previous day's scan from 05/22/21 obtained without contrast. Lower lung figueroa and pleural spaces visualized appeared normal. The heart appeared normal in size. No pericardial effusion was seen. There is marked delay in excretion with persistent right nephrogram and pyelocaliectasis and ureterectasis down to the level of the distal ureter, where an almost 3 mm calculus is present, apparently producing obstructive uropathy of moderate to moderately severe degree. The left pyelocaliceal system and ureter appeared normal. Both kidneys showed no evidence of mass lesions or definite renal calcinosis. The urinary bladder wall appears to be somewhat thickened, which could be on the basis of cystitis and should be correlated clinically. The liver, gallbladder, adrenal glands, spleen, pancreas and retroperitoneum appeared unremarkable, except for some minimal retroperitoneal lymphadenopathy, which is nonspecific. The appendix appeared normal, visualized on axial images 65 through 74. No evidence of free air or bowel obstruction was seen. No evidence of ventral or inguinal hernia was seen. In the right upper quadrant just medial to the gallbladder, there is a low- density mass with a relatively high-density rind with an inferiorly located calcification exophytically at its inferior aspect. This lesion measures approximately 42 x 27 x 30 mm in craniocaudad, transverse and AP diameters. Etiology indeterminate. There is no fat stranding surrounding it. Possibly this represents a gut remnant, is a consideration. The interior density measures approximately 3 Hounsfield units, compared with 7.4 for the gallbladder. IMPRESSION 1. Fairly severe obstructive uropathy on the right with a calculus noted, approximately 2.0 cm above the ureterovesical junction, having moved significantly inferiorly compared with the previous examination. 2. Low-density mass with a contrast-enhancing rind in the right upper quadrant adjacent to the gallbladder, but not connected to bowel or gallbladder with an adjacent calcification, could represent a gut remnant. 3. Remainder of the abdomen and pelvis was unremarkable. Report was called to Dr. Krishnamurthy immediately after the examination was completed. [facility]
[2021-05-23] MEDS ORDERED: Ondansetron 4 MG/2 ML SDV IV PRN (14:21)
[2021-05-23] MEDS ORDERED: HYDROmorphone 2 MG/ML SDV IVPUSH PRN (14:21)
[2021-05-23] MEDS ORDERED: Albuterol 8 GM Inhaler INH PRN (14:25)
[2021-05-23] MEDS ORDERED: Ketorolac 30 MG/ML SDV IVPUSH PRN (15:00)
--- NOTE | 2021-05-23 15:33 | PCM.HP.2 ---
H&P History of Present Illness - General Date of Service: 05/23/21 Admit Problem/Dx: Admission Diagnosis/Problem Admission Diagnosis/Problem Renal colic on right side Source of Information: Patient, Old Records, Provider History Limitations: Reports: No Limitations - History of Present Illness Initial Comments - Free Text/Narative: Cyndee presented to ER yesterday and today for right flank pain worsening today. She was seen in ER yesterday had UA showed packed RBC, WBC, moderate bacteria. CT abdomen/pelvis was negative per report. She was sent home with Bactrim DS bid for 7 days. Came back today for worsening pain, 04/13. She has nausea, but no vomiting, no diarrhea. Fevers, chills, diaphoresis but no fever in ER. Denies any cough, runny nose, shortness of breath, chest pain. No dysuria but hematuria. NO black or bloody stools. NO edema. NO rashes. History of Kidney stones. Transitioning to female from sex male: on Spironolactone, Estradiol, Citalopram, Progesterone. In ER today received Rocephin 1 g x 1, Dilaudid 0.5 and 1 mg x 2, Toradol 30 mg IV and pain brought down to 8/10. CT abdomen/pelvis with contrast was done showed hydronephrosis, compared with CT yesterday and did see right ureteral stone present 3 mm at UVJ junction. Urine culture off UA from yesterday done. Admit for pain control, IV fluids and antibiotics. Right Flank Pain Score (Numeric/FACES): 3 - Related Data Allergies/Adverse Reactions: Allergies Allergy/AdvReac Type Severity Reaction Status Date / Time No Known Allergies Allergy Verified 01/10/18 08:40 Home Medications: Home Meds Citalopram Hydrobromide [Celexa] 40 mg PO DAILY 05/22/21 [History] estradioL [Estradiol] 4 mg PO DAILY 05/22/21 [History] Albuterol [Ventolin HFA] 2 puff IH Q6H PRN 05/23/21 [History] Finasteride 1 mg PO DAILY 05/23/21 [History] Progesterone, Micronized [Progesterone] 100 mg PO BEDTIME 05/23/21 [History] Spironolactone [Aldactone] 100 mg PO BID 11/19/21 [History] Past Medical History Other HEENT History: 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 Cardiovascular History: Reports: Heart Murmur, Other (See Below) Other Cardiovascular History: as a child, heart murmur Respiratory History: Reports: Asthma Other Respiratory History: as an only Gastrointestinal History: Reports: None Genitourinary History: Reports: Renal Calculus Musculoskeletal History: Reports: Fracture Other Musculoskeletal History: fractured hip 2013 Neurological History: Reports: Concussion Psychiatric History: Reports: ADHD, Anxiety, Depression Endocrine/Metabolic History: Reports: None Hematologic History: Reports: None Immunologic History: Reports: None Oncologic (Cancer) History: Reports: None Dermatologic History: Reports: Other (See Below) Other Dermatologic History: acne - Infectious Disease History Infectious Disease History: Reports: None - Past Surgical History Head Surgeries/Procedures: Reports: None GI Surgical History: Reports: None Endocrine Surgical History: Reports: None Musculoskeletal Surgical History: Reports: Other (See Below) Other Musculoskeletal Surgeries/Procedures:: Surgery for fractured left hip, 2013. 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 On HRT. H&P Review of Systems - Review of Systems: Review Of Systems: Comprehensive ROS is negative, except as noted in HPI. Exam - Exam Exam: See Below - Vital Signs Vital Signs: Last Vital Signs Temp 98.3 F 05/23/21 13:40 Pulse 64 05/23/21 13:40 Resp 16 05/23/21 13:40 BP 135/80 05/23/21 13:40 Pulse Ox 97 05/23/21 13:40 Weight: 227 lb - Exam General: Alert, Oriented, Cooperative, Mild Distress HEENT: PERRLA, Conjunctiva Clear, EOMI, Hearing Intact, Mucosa Moist & [place], Other (multiple piercings of ears, nose, lip.) Neck: Trachea Midline. No: Lymphadenopathy Lungs: Clear to Auscultation, Normal Respiratory Effort Cardiovascular: Regular Rate, Regular Rhythm GI/Abdominal Exam: Normal Bowel Sounds, Soft, Guarding, Tender (Right abomen). No: No Distention, Rigid, Rebound (Female) Exam: Deferred Rectal (Female) Exam: Deferred Back Exam: CVA Tenderness (R) Extremities: No Pedal Edema, Normal Capillary Refill Peripheral Pulses: 2+: Radial (L), Radial (R), Posterior Tibial (L), Posterior Tibial (R), Dorsalis Pedis (L), Dorsalis Pedis (R) Skin: Warm, Dry, Intact Neurological: Cranial Nerves Intact, Normal Speech, Normal Tone - Patient Data Lab Results Last 24 hrs: Laboratory Results - last 24 hr 05/23/21 05/23/21 05/23/21 Range/Units 09:20 09:25 09:25 WBC 11.7 H (3.0-10.3) x10-3/uL RBC 4.66 (3.60-5.20) x10(6)uL Hgb 14.4 (11.4-15.5) g/dL Hct 42.4 (34.2-48.2) % MCV 91.0 (76.7-100.5) fL MCH 30.9 (23.9-33.9) pg MCHC 34.0 (31.9-34.8) g/dL RDW 12.2 L (12.3-16.5) % Plt Count 276 (151-488) x10(3)uL MPV 8.7 (7.1-12.4) fL Neut % (Auto) 82.3 H (30.8-76.2) % Lymph % (Auto) 10.0 L (18.4-52.1) % [place] % (Auto) 5.7 (4.4-15.7) % Eos % (Auto) 1.5 (0.6-8.1) % Baso % (Auto) 0.5 (0.2-1.5) % Neut # (Auto) 9.6 H (1.5-6.3) x10-3/uL Lymph # (Auto) 1.2 (1.0-4.4) x10-3/uL [place] # (Auto) 0.7 (0.3-1.0) x10-3/uL Eos # (Auto) 0.2 (0.0-0.8) x10-3/uL Baso # (Auto) 0.1 (0.0-0.1) x10-3/uL Sodium 139 (135-145) mmol/L Potassium 4.2 (3.5-5.3) mmol/L Chloride 105 (100-110) mmol/L Carbon Dioxide 25 (21-32) mmol/L BUN 18 (7-18) mg/dL Creatinine 1.3 H (0.55-1.02) mg/dL Est Cr Clr Drug Dosing 63.77 mL/min Estimated GFR (MDRD) 50 L (>60) BUN/Creatinine Ratio 13.8 (9-20) Glucose 107 (80-116) mg/dL Calcium 8.8 (8.6-10.2) mg/dL Magnesium 2.0 (1.8-2.5) mg/dL Total Bilirubin 0.3 (0.1-1.3) mg/dL AST 25 (5-25) IU/L ALT 73 H (12-36) U/L Alkaline Phosphatase 93 (56-112) IU/L C-Reactive Protein (0.5-0.9) mg/dL Total Protein 7.8 (6.0-8.0) g/dL Albumin 4.0 (3.5-5.2) g/dL Globulin 3.8 g/dL Albumin/Globulin Ratio 1.1 Urine Color Yellow (YELLOW) Urine Appearance Slightly cloudy (CLEAR) Urine pH 5.0 (5.0-6.5) Ur Specific [place] 1.020 (1.010-1.025) Urine Protein Negative (NEGATIVE) mg/dL Urine Glucose (UA) Normal (NORMAL) mg/dL Urine Ketones Negative (NEGATIVE) mg/dL Urine Occult Blood Moderate H (NEGATIVE) Urine Nitrite Negative (NEGATIVE) Urine Bilirubin Negative (NEGATIVE) Urine Urobilinogen Normal (NEGATIVE) mg/dL Ur Leukocyte Esterase Negative (NEGATIVE) Urine RBC 10-20 H (0-5) Urine WBC 5-10 H (0-5) Ur Squamous Epith Cells Moderate H (NS,R,O) Urine Bacteria Moderate H (NS) Urine Mucus Moderate H (NS) SARS-CoV-2 RNA (MAGY) (NEGATIVE) 05/23/21 05/23/21 Range/Units 09:25 10:52 WBC (3.0-10.3) x10-3/uL RBC (3.60-5.20) x10(6)uL Hgb (11.4-15.5) g/dL Hct (34.2-48.2) % MCV (76.7-100.5) fL MCH (23.9-33.9) pg MCHC (31.9-34.8) g/dL RDW (12.3-16.5) % Plt Count (151-488) x10(3)uL MPV (7.1-12.4) fL Neut % (Auto) (30.8-76.2) % Lymph % (Auto) (18.4-52.1) % [place] % (Auto) (4.4-15.7) % Eos % (Auto) (0.6-8.1) % Baso % (Auto) (0.2-1.5) % Neut # (Auto) (1.5-6.3) x10-3/uL Lymph # (Auto) (1.0-4.4) x10-3/uL [place] # (Auto) (0.3-1.0) x10-3/uL Eos # (Auto) (0.0-0.8) x10-3/uL Baso # (Auto) (0.0-0.1) x10-3/uL Sodium (135-145) mmol/L Potassium (3.5-5.3) mmol/L Chloride (100-110) mmol/L Carbon Dioxide (21-32) mmol/L BUN (7-18) mg/dL Creatinine (0.55-1.02) mg/dL Est Cr Clr Drug Dosing mL/min Estimated GFR (MDRD) (>60) BUN/Creatinine Ratio (9-20) Glucose (80-116) mg/dL Calcium (8.6-10.2) mg/dL Magnesium (1.8-2.5) mg/dL Total Bilirubin (0.1-1.3) mg/dL AST (5-25) IU/L ALT (12-36) U/L Alkaline Phosphatase (56-112) IU/L C-Reactive Protein 1.4 H (0.5-0.9) mg/dL Total Protein (6.0-8.0) g/dL Albumin (3.5-5.2) g/dL Globulin g/dL Albumin/Globulin Ratio Urine Color (YELLOW) Urine Appearance (CLEAR) Urine pH (5.0-6.5) Ur Specific [place] (1.010-1.025) Urine Protein (NEGATIVE) mg/dL Urine Glucose (UA) (NORMAL) mg/dL Urine Ketones (NEGATIVE) mg/dL Urine Occult Blood (NEGATIVE) Urine Nitrite (NEGATIVE) Urine Bilirubin (NEGATIVE) Urine Urobilinogen (NEGATIVE) mg/dL Ur Leukocyte Esterase (NEGATIVE) Urine RBC (0-5) Urine WBC (0-5) Ur Squamous Epith Cells (NS,R,O) Urine Bacteria (NS) Urine Mucus (NS) SARS-CoV-2 RNA (MAGY) Negative (NEGATIVE) Result Diagrams: 05/23/21 09:25 05/23/21 09:25 Sepsis Event Note - Evaluation Sepsis Screening Result: No Definite Risk - Focused Exam Vital Signs: Vital Signs Temp Pulse Resp BP Pulse Ox 05/23/21 13:40 98.3 F 64 16 135/80 97 05/23/21 08:47 98.1 F 105 H 20 134/98 H 100 *Q Meaningful Use (ADM) - VTE Risk Assess *Q Each Risk Factor Represents 1 Point: Oral Contraceptives or Hormone Replacement Therapy Total Score 1 Point Risk Factors: 1 Each Risk Factor Represents 2 Points: None Total Score 2 Point Risk Factors: 0 Each Risk Factor Represents 3 Points: None Total Score 3 Point Risk Factors: 0 Each Risk Factor Represents 5 Points: None Total Score 5 Point Risk Factors: 0 Venous Thromboembolism Risk Factor Score *Q: 1 - Problem List (1) Renal colic on right side SNOMED Code(s): 1355469 ICD Code: N23 - UNSPECIFIED RENAL COLIC Status: Acute Current Visit: Yes (2) Uncontrolled pain SNOMED Code(s): 65310479956758527 ICD Code: R52 - PAIN, UNSPECIFIED Status: Acute Current Visit: Yes (3) Ureteral calculus, right SNOMED Code(s): 60263673 ICD Code: N20.1 - CALCULUS OF URETER Status: Acute Current Visit: Yes (4) UTI (urinary tract infection) SNOMED Code(s): 10475676 ICD Code: N39.0 - URINARY TRACT INFECTION, SITE NOT SPECIFIED Status: Acute Current Visit: No Problem List Initiated/Reviewed/Updated: Yes Orders Last 24hrs: Active Orders 24 hr Category Date Time Status Admission Status [Patient Status] [ADT] Routine ADT 05/23/21 12:27 Active Ambulate [RC] PER UNIT ROUTINE Care 05/23/21 14:21 Active Oxygen Therapy [RC] PRN Care 05/23/21 14:21 Active RT Aerosol Therapy [RC] ASDIRECTED Care 05/23/21 14:25 Active RT Post Treatment Assessment [RC] Click to Edit Care 05/23/21 14:25 Active Strain Urine [RC] ASDIRECTED Care 05/23/21 14:24 Active Up ad Gladys [RC] ASDIRECTED Care 05/23/21 14:21 Active VTE/DVT Education [RC] Per Unit Routine Care 05/23/21 14:21 Active Vital Signs [RC] Q4H Care 05/23/21 14:21 Active Regular Diet [DIET] Diet 05/23/21 Dinner Active BASIC METABOLIC PANEL,BMP [CHEM] Routine Lab 05/24/21 06:00 Ordered CBC WITH AUTO DIFF [HEME] Routine Lab 05/24/21 06:00 Ordered CULTURE URINE [RM] Stat Lab 05/23/21 09:20 Received Albuterol [Ventolin HFA] Med 05/23/21 14:25 Active 0 gm INH Q6H PRN Citalopram [Celexa] Med 05/24/21 09:00 Active 40 mg PO DAILY Finasteride [Finasteride] Med 05/24/21 09:00 Ordered 1 mg PO DAILY HYDROmorphone [Dilaudid] Med 05/23/21 14:21 Active 0.5 mg IVPUSH Q2H PRN Ketorolac [Toradol] Med 05/23/21 15:00 Active 30 mg IVPUSH Q6H PRN Ondansetron [Zofran] Med 05/23/21 14:21 Active 4 mg IV Q4H PRN Progesterone, Micronized [Progesterone] Med 05/23/21 21:00 Ordered 100 mg PO BEDTIME Sodium Chloride 0.9% [Normal Saline] 1,000 ml Med 05/23/21 10:30 Active IV ASDIRECTED Spironolactone [Aldactone] Med 05/23/21 21:00 Active 100 mg PO BID Tamsulosin [Flomax] Med 05/24/21 09:00 Active 0.4 mg PO DAILY cefTRIAXone [Rocephin] Med 05/24/21 10:00 Active 1 gm IVPUSH Q24H estradioL Med 05/24/21 09:00 Active 4 mg PO DAILY Resuscitation Status Routine Resus Stat 05/23/21 14:21 Ordered Medication Orders Albuterol (Albuterol 8 Gm Inhaler) 0 gm INH Q6H PRN PRN Reason: Shortness of Breath Ceftriaxone Sodium (Ceftriaxone 1 Gm Vial) 1 gm IVPUSH Q24H [facility] Citalopram Hydrobromide (Citalopram 20 Mg Tab) 40 mg PO DAILY [facility] Estradiol (Estradiol 1 Mg Tab) 4 mg PO DAILY [facility] Hydromorphone HCl (Hydromorphone 2 Mg/Ml Sdv) 0.5 mg IVPUSH Q2H PRN PRN Reason: Pain (severe 7-10) Sodium Chloride (Normal Saline) 1,000 mls @ 150 mls/hr IV ASDIRECTED [facility] Last Admin: 05/23/21 10:32 Dose: 150 mls/hr Documented by: KOSTAS Ketorolac Tromethamine (Ketorolac 30 Mg/Ml Sdv) 30 mg IVPUSH Q6H PRN PRN Reason: Pain (moderate 4-6) Non-Formulary Medication (Finasteride [Finasteride]) 1 mg PO DAILY [facility] Non-Formulary Medication (Progesterone, Micronized [Progesterone]) 100 mg PO BEDTIME [facility] Ondansetron HCl (Ondansetron 4 Mg/2 Ml Sdv) 4 mg IV Q4H PRN PRN Reason: Nausea/Vomiting Spironolactone (Spironolactone 50 Mg Tab) 100 mg PO BID [facility] Tamsulosin HCl (Tamsulosin 0.4 Mg Cap.Er) 0.4 mg PO DAILY [facility] Assessment/Plan Comment:: 1. Admit for observation for right ureteral stone, UTI, uncontrolled right flank pain. 2. Right ureteral stone/UTI: Rocephin 1 g IV q24h, Dilaudid 1 mg IV q2h, Toradol 30 mg IV q6h, Tylenol 650 mg q4h as needed. Zofran as needed nausea. Tamsulosin 0.4 mg daily. NS at 150 ml/hr. Strain urine. Urine culture pending. 3. Diet: regular. 4. Activity: as tolerated. 5. DVT prophylaxis: ambulate. 6. CODE STATUS: FULL. 8. Disposition: anticipate 24-48 hours until stone passes, UC back and able to transition to oral medications. - Mortality Measure Prognosis:: Good
[2021-05-23] MEDS ORDERED: Non-Formulary Medication 1 Each (Progesterone, Micronized [Progesterone] 100 MG Capsule) PO SCH (21:00)
[2021-05-23] MEDS ORDERED: Spironolactone 50 MG Tab PO SCH (21:00)
[2021-05-24] MEDS: Sodium Chloride 0.9% 1,000 ML IV SCH (06:08)
[2021-05-24 06:29] VITALS: BP 99/53; PULSE 72
[2021-05-24] MEDS ORDERED: Tamsulosin 0.4 MG Cap.ER PO SCH (09:00)
[2021-05-24] MEDS ORDERED: Non-Formulary Medication 1 Each (Finasteride [Finasteride] 1 MG Tablet) PO SCH (09:00)
[2021-05-24] MEDS ORDERED: Estradiol 1 MG Tab PO SCH (09:00)
[2021-05-24] MEDS ORDERED: Citalopram 20 MG Tab PO SCH (09:00)
[2021-05-24] MEDS ORDERED: cefTRIAXone 1 GM Vial IVPUSH SCH (10:00)
--- NOTE | 2021-05-24 17:45 | PCM.DCSUM1 ---
Discharge Summary - Hospital Course HPI Initial Comments: Cyndee presented to ER yesterday and today for right flank pain worsening today. She was seen in ER yesterday had UA showed packed RBC, WBC, moderate bacteria. CT abdomen/pelvis was negative per report. She was sent home with Bactrim DS bid for 7 days. Came back today for worsening pain, 10/10. She has nausea, but no vomiting, no diarrhea. Fevers, chills, diaphoresis but no fever in ER. Denies any cough, runny nose, shortness of breath, chest pain. No dysuria but hematuria. NO black or bloody stools. NO edema. NO rashes. History of Kidney stones. Transitioning to female from sex male: on Spironolactone, Estradiol, Citalopram, Progesterone. In ER today received Rocephin 1 g x 1, Dilaudid 0.5 and 1 mg x 2, Toradol 30 mg IV and pain brought down to 8/10. CT abdomen/pelvis with contrast was done showed hydronephrosis, compared with CT yesterday and did see right ureteral stone present 3 mm at UVJ junction. Urine culture off UA from yesterday done. Admit for pain control, IV fluids and antibiotics. Diagnosis: Stroke: No - Discharge Data Discharge Date: 05/24/21 Discharge Disposition: Home, Self-Care 01 Condition: Stable - Referral to Home Health Primary Care Physician: Aydin Muse MD - Discharge Diagnosis/Problem(s) (1) Ureteral calculus, right SNOMED Code(s): 69692901 ICD Code: N20.1 - CALCULUS OF URETER Status: Acute (2) Renal colic on right side SNOMED Code(s): 1097996 ICD Code: N23 - UNSPECIFIED RENAL COLIC Status: Resolved (3) Uncontrolled pain SNOMED Code(s): 39534603076059534 ICD Code: R52 - PAIN, UNSPECIFIED Status: Resolved (4) UTI (urinary tract infection) SNOMED Code(s): 80453955 ICD Code: N39.0 - URINARY TRACT INFECTION, SITE NOT SPECIFIED Status: Ruled-out Problem Details: Urine culture from 05/22 no growth. Antibiotics discontinued. - Patient Summary/Data Hospital Course: Pt had CT abdomen/pelvis without contrast on 05/22, UA showed possible UTI sent home with Bactrim, did not fill as she came back next morning with intractable pain. WBC had elevated, CT abdomen/pelvis with contrast was done, compared with CT from 05/22 and showed 3 mm stone on right. Rocephin given in ER. UC from 05/22 showed no growth so Rocephin discontinued today. Pt passed small black gravel last night, was not seen by nursing but pt has not required any pain medications since. Nothing overnight or this morning. Labs improved today. Follow up with Dr Muse next week recheck urine to make sure no hematuria present. - Patient Instructions Diet: Usual Diet as Tolerated Activity: As Tolerated Driving: May Drive Today Showering/Bathing: May Shower Notify Provider of: Fever, Increased Pain, Nausea and/or Vomiting Other/Special Instructions: Follow up with Dr Muse in 1 week to recheck urine. - Discharge Plan *PRESCRIPTION DRUG MONITORING PROGRAM REVIEWED*: Not Applicable *COPY OF PRESCRIPTION DRUG MONITORING REPORT IN PATIENT [place]: Not Applicable Home Medications: Home Meds Citalopram Hydrobromide [Celexa] 40 mg PO DAILY 05/22/21 [History] estradioL [Estradiol] 4 mg PO DAILY 05/22/21 [History] Albuterol [Ventolin HFA] 2 puff IH Q6H PRN 05/23/21 [History] Finasteride 1 mg PO DAILY 05/23/21 [History] Progesterone, Micronized [Progesterone] 100 mg PO BEDTIME 05/23/21 [History] Spironolactone [Aldactone] 100 mg PO BID 05/23/21 [History] Oxygen Therapy Mode: Room Air Patient Handouts: Pyelonephritis, Adult, [id number], Kidney Stones, [id number], Fall Prevention in Hospitals, Adult, Venous Thromboembolism Prevention Forms: ED Department Discharge Referrals: Aydin Muse MD [Primary Care Provider] - - Discharge Summary/Plan Comment DC Time >30 min.: No Total # of Minutes for Discharge Time: 10 min - General Info Date of Service: 05/24/21 Subjective Update: Pt stated she saw black gravel in the toilet last night. Has had no pain since last night. Has not required any pain medications since last night. NO fevers, chills. NO nausea or vomiting. Would like to go home. - Patient Data Vitals - Most Recent: Last Vital Signs Temp 98.3 F 05/24/21 05:15 Pulse 72 05/24/21 05:15 Resp 18 05/24/21 05:15 BP 99/53 L 05/24/21 05:15 Pulse Ox 99 05/24/21 05:15 Weight - Most Recent: 227 lb I&O - Last 24 hours: Intake & Output 05/24/21 05/24/21 05/24/21 06:59 14:59 22:59 Intake Total 1398 750 Balance 8555 750 Lab Results - Last 24 hrs: Laboratory Results - last 24 hr 05/24/21 05/24/21 Range/Units 07:05 07:05 WBC 8.0 (3.0-10.3) x10-3/uL RBC 4.00 (3.60-5.20) x10(6)uL Hgb 12.3 (11.4-15.5) g/dL Hct 36.5 (34.2-48.2) % MCV 91.2 (76.7-100.5) fL MCH 30.7 (23.9-33.9) pg MCHC 33.7 (31.9-34.8) g/dL RDW 12.2 L (12.3-16.5) % Plt Count 213 (151-488) x10(3)uL MPV 9.0 (7.1-12.4) fL Neut % (Auto) 77.5 H (30.8-76.2) % Lymph % (Auto) 15.0 L (18.4-52.1) % [place] % (Auto) 5.3 (4.4-15.7) % Eos % (Auto) 1.8 (0.6-8.1) % Baso % (Auto) 0.4 (0.2-1.5) % Neut # (Auto) 6.2 (1.5-6.3) x10-3/uL Lymph # (Auto) 1.2 (1.0-4.4) x10-3/uL [place] # (Auto) 0.4 (0.3-1.0) x10-3/uL Eos # (Auto) 0.1 (0.0-0.8) x10-3/uL Baso # (Auto) 0.0 (0.0-0.1) x10-3/uL Sodium 140 (135-145) mmol/L Potassium 4.5 (3.5-5.3) mmol/L Chloride 109 (100-110) mmol/L Carbon Dioxide 26 (21-32) mmol/L BUN 9 (7-18) mg/dL Creatinine 1.0 (0.55-1.02) mg/dL Est Cr Clr Drug Dosing 82.90 mL/min Estimated GFR (MDRD) > 60 (>60) BUN/Creatinine Ratio 9.0 (9-20) Glucose 87 (80-116) mg/dL Calcium 7.6 L (8.6-10.2) mg/dL Med Orders - Current: Current Medications Discontinued Medications Albuterol (Albuterol 8 Gm Inhaler) 0 gm INH Q6H PRN PRN Reason: Shortness of Breath Ceftriaxone Sodium (Ceftriaxone 1 Gm Vial) 1 gm IVPUSH ONETIME ONE Stop: 05/23/21 10:20 Last Admin: 05/23/21 10:31 Dose: 1 gm Documented by: Ceftriaxone Sodium (Ceftriaxone 1 Gm Vial) 1 gm IVPUSH Q24H [facility] Citalopram Hydrobromide (Citalopram 20 Mg Tab) 40 mg PO DAILY [facility] Estradiol (Estradiol 1 Mg Tab) 4 mg PO DAILY [facility] Hydromorphone HCl (Hydromorphone 2 Mg/Ml Sdv) 1 mg IVPUSH ONETIME ONE Stop: 05/23/21 09:13 Last Admin: 05/23/21 09:26 Dose: 1 mg Documented by: Hydromorphone HCl (Hydromorphone 2 Mg/Ml Sdv) 1 mg IVPUSH ONETIME ONE Stop: 05/23/21 10:27 Last Admin: 05/23/21 10:31 Dose: 1 mg Documented by: Hydromorphone HCl (Hydromorphone 2 Mg/Ml Sdv) 0.5 mg IVPUSH ONETIME ONE Stop: 05/23/21 12:35 Last Admin: 05/23/21 16:28 Dose: Not Given Documented by: Hydromorphone HCl (Hydromorphone 2 Mg/Ml Sdv) 0.5 mg IVPUSH Q2H PRN PRN Reason: Pain (severe 7-10) Sodium Chloride (Normal Saline) 1,000 mls @ 999 mls/hr IV .BOLUS ONE Stop: 05/23/21 10:12 Last Admin: 05/23/21 09:15 Dose: 999 mls/hr Documented by: Sodium Chloride (Normal Saline) 1,000 mls @ 150 mls/hr IV ASDIRECTED [facility] Last Admin: 05/24/21 06:08 Dose: 150 mls/hr Documented by: Promethazine HCl 25 mg/ Sodium (Chloride) 51 mls @ 200 mls/hr IV ONETIME ONE Stop: 05/23/21 12:38 Last Admin: 05/23/21 12:31 Dose: 200 mls/hr Documented by: Iopamidol (Iopamidol 755 Mg/Ml 100 Ml Bottle) 100 ml IV . DIRECTED ONE Stop: 05/23/21 11:15 Last Admin: 05/23/21 11:30 Dose: 100 ml Documented by: Ketorolac Tromethamine (Ketorolac 30 Mg/Ml Sdv) 30 mg IVPUSH ONETIME ONE Stop: 05/23/21 09:11 Last Admin: 05/23/21 09:15 Dose: 30 mg Documented by: Ketorolac Tromethamine (Ketorolac 30 Mg/Ml Sdv) 30 mg IVPUSH Q6H PRN PRN Reason: Pain (moderate 4-6) Non-Formulary Medication (Finasteride [Finasteride]) 1 mg PO DAILY [facility] Non-Formulary Medication (Progesterone, Micronized [Progesterone]) 100 mg PO BEDTIME [facility] Ondansetron HCl (Ondansetron 4 Mg/2 Ml Sdv) 4 mg IVPUSH ONETIME ONE Stop: 05/23/21 09:11 Last Admin: 05/23/21 09:15 Dose: 4 mg Documented by: Ondansetron HCl (Ondansetron 4 Mg/2 Ml Sdv) 4 mg IV Q4H PRN PRN Reason: Nausea/Vomiting Spironolactone (Spironolactone 50 Mg Tab) 100 mg PO BID [facility] Last Admin: 05/23/21 21:23 Dose: 100 mg Documented by: Tamsulosin HCl (Tamsulosin 0.4 Mg Cap.Er) 0.4 mg PO ONETIME ONE Stop: 05/23/21 12:29 Last Admin: 05/23/21 12:31 Dose: 0.4 mg Documented by: Tamsulosin HCl (Tamsulosin 0.4 Mg Cap.Er) 0.4 mg PO DAILY [facility] - Exam General: Reports: Alert, Oriented, Cooperative, No Acute Distress Lungs: Reports: Clear to Auscultation, Normal Respiratory Effort Cardiovascular: Reports: Regular Rate, Regular Rhythm GI/Abdominal Exam: Normal Bowel Sounds, Soft, Non-Tender, No Distention, Other Back Exam: Reports: CVA Tenderness (R) (mild) Extremities: No Pedal Edema Skin: Reports: Warm, Dry, Intact
== END 2021-05-24 11:30 | disposition home or self-care (01) ==
LOC: EDSEX → FB.ED 08:47 → FB.MS 13:10
PROVIDERS: ADMIT Family Medicine; ATTEND Family Medicine
DX: N20.1 Calculus of ureter (principal); F41.9 Anxiety disorder, unspecified; F32.9 Major depressive disorder, single episode, unspecified; N39.0 Urinary tract infection, site not specified; Z20.822 Contact with and (suspected) exposure to COVID-19; Z87.891 Personal history of nicotine dependence; Z79.899 Other long term (current) drug therapy; J45.909 Unspecified asthma, uncomplicated
CPT/HCPCS: 36415; 74177; 80048; 80053; 81001; 83735; 85025; 86140; 87635; 96365; 96375; 96376; 99285; A9270; G0378; J0696; J1170; J1885; J2405; J2550; J7030; Q9967; 87086; U0002

== ENCOUNTER 2021-09-27 18:39 | Emergency (ER) | payer BC, OTHER ==
[2021-09-27] MEDS ORDERED: Ketorolac 30 MG/ML SDV IM ONE (21:15)
[2021-09-27] MEDS ORDERED: Acetaminophen 500 MG Tab PO ONE (21:15)
[2021-09-27 23:17] VITALS: BP 133/76; PULSE 102
== END 2021-09-27 23:35 | disposition other institution (70) ==
LOC: FB.ED 18:39
DX: M54.6 Pain in thoracic spine (principal); D72.829 Elevated white blood cell count, unspecified; R79.82 Elevated C-reactive protein (CRP); Z20.822 Contact with and (suspected) exposure to COVID-19
CPT/HCPCS: 36415; 72072; 72128; 80053; 81001; 85025; 86140; 96372; 99284; 99285-25; A9270-GY; J1885; U0002

== ENCOUNTER 2021-10-03 09:00 | Inpatient (IN) | payer OTHER ==
[2021-10-03] MEDS ORDERED: ceFAZolin/Dextrose,Iso-Osmotic 2 GM/50 ML Duplex Bag (Premix) IV SCH (15:00)
[2021-10-03] MEDS ORDERED: Albuterol 0.083% 2.5 MG/3 ML Neb Soln NEB PRN (15:00)
[2021-10-03] MEDS: Ketorolac 10 MG Tab PO PRN (16:05)
[2021-10-03] MEDS: Cyclobenzaprine 10 MG Tab PO PRN (16:11)
[2021-10-03] MEDS: ceFAZolin 2 GM in Premix Bag 1 BAG IV SCH ×2 (16:40→23:20)
[2021-10-03] MEDS: Sodium Chloride 0.9% 10 ML Syringe FLUSH PRN (16:41)
[2021-10-03] MEDS: Acetaminophen 500 MG Tab PO SCH (20:00)
[2021-10-03] MEDS: Spironolactone 50 MG Tab PO SCH (20:00)
[2021-10-03] MEDS: Estradiol 1 MG Tab PO SCH (20:01)
[2021-10-04] MEDS ORDERED: Ketorolac 30 MG/ML SDV IVPUSH ONE (00:38)
[2021-10-04] MEDS: ceFAZolin 2 GM in Premix Bag 1 BAG IV SCH ×2 (09:59→16:21)
[2021-10-04] MEDS: Spironolactone 50 MG Tab PO SCH ×2 (09:59→20:10)
[2021-10-04] MEDS: Venlafaxine 75 MG Cap.ER PO SCH (10:00)
[2021-10-04] MEDS: Lidocaine 4% 1 each Patch TOP SCH (10:01)
[2021-10-04] MEDS: Citalopram 20 MG Tab PO SCH (10:02)
[2021-10-04] MEDS: Estradiol 1 MG Tab PO SCH ×2 (10:02→20:11)
[2021-10-04] MEDS: Biotin 5 MG Cap PO SCH (10:02)
[2021-10-04] MEDS: Acetaminophen 500 MG Tab PO SCH ×3 (10:03→20:14)
[2021-10-04] MEDS: Cyclobenzaprine 10 MG Tab PO PRN (16:39)
[2021-10-04] MEDS: Ketorolac 10 MG Tab PO PRN (16:40)
[2021-10-05] MEDS ORDERED: Menthol/Methyl Salicylate 142 GM Jar TOP PRN (01:27)
[2021-10-05] MEDS: Spironolactone 50 MG Tab PO SCH ×2 (08:14→20:54)
[2021-10-05] MEDS: Estradiol 1 MG Tab PO SCH ×2 (08:14→20:54)
[2021-10-05] MEDS: ceFAZolin 2 GM in Premix Bag 1 BAG IV SCH ×4 (08:14→16:15)
[2021-10-05] MEDS: Acetaminophen 500 MG Tab PO SCH ×3 (08:14→20:55)
[2021-10-05] MEDS: Venlafaxine 75 MG Cap.ER PO SCH (08:15)
[2021-10-05] MEDS: Citalopram 20 MG Tab PO SCH (08:15)
[2021-10-05] MEDS: Lidocaine 4% 1 each Patch TOP SCH (08:15)
[2021-10-05] MEDS: Biotin 5 MG Cap PO SCH (08:15)
[2021-10-05] MEDS: Sodium Chloride 0.9% 10 ML Syringe FLUSH PRN ×2 (08:16→16:45)
[2021-10-05] MEDS: Cyclobenzaprine 10 MG Tab PO PRN (18:03)
[2021-10-05] MEDS: Ketorolac 10 MG Tab PO PRN ×2 (18:03→21:13)
[2021-10-06] MEDS: ceFAZolin 2 GM in Premix Bag 1 BAG IV SCH ×3 (00:05→15:50)
[2021-10-06] MEDS: Sodium Chloride 0.9% 10 ML Syringe FLUSH PRN ×5 (00:38→16:33)
[2021-10-06] MEDS ORDERED: Menthol/Methyl Salicylate 85 GM Tube TOP PRN (07:55)
[2021-10-06] MEDS: Spironolactone 50 MG Tab PO SCH ×3 (08:49→21:15)
[2021-10-06] MEDS: Biotin 5 MG Cap PO SCH (08:51)
[2021-10-06] MEDS: Acetaminophen 500 MG Tab PO SCH ×3 (08:52→21:11)
[2021-10-06] MEDS: Venlafaxine 75 MG Cap.ER PO SCH (08:54)
[2021-10-06] MEDS: Citalopram 20 MG Tab PO SCH (08:55)
[2021-10-06] MEDS: Lidocaine 4% 1 each Patch TOP SCH (08:55)
[2021-10-06] MEDS: Estradiol 1 MG Tab PO SCH ×2 (08:56→21:16)
[2021-10-06] MEDS: Cyclobenzaprine 10 MG Tab PO PRN (21:19)
[2021-10-07] MEDS: ceFAZolin 2 GM in Premix Bag 1 BAG IV SCH ×4 (00:04→23:58)
[2021-10-07] MEDS: Sodium Chloride 0.9% 10 ML Syringe FLUSH PRN ×5 (00:16→17:04)
[2021-10-07] MEDS: Venlafaxine 75 MG Cap.ER PO SCH (08:33)
[2021-10-07] MEDS: Acetaminophen 500 MG Tab PO SCH ×3 (08:34→20:45)
[2021-10-07] MEDS: Citalopram 20 MG Tab PO SCH (08:34)
[2021-10-07] MEDS: Lidocaine 4% 1 each Patch TOP SCH (10:15)
[2021-10-07] MEDS: Estradiol 1 MG Tab PO SCH ×2 (10:16→20:46)
[2021-10-07] MEDS: Biotin 5 MG Cap PO SCH (10:16)
[2021-10-07] MEDS: Spironolactone 50 MG Tab PO SCH ×2 (10:16→20:46)
[2021-10-08] MEDS: Sodium Chloride 0.9% 10 ML Syringe FLUSH PRN ×4 (00:16→23:56)
[2021-10-08] MEDS: ceFAZolin 2 GM in Premix Bag 1 BAG IV SCH ×3 (08:13→23:43)
[2021-10-08] MEDS: Spironolactone 50 MG Tab PO SCH ×2 (08:13→20:57)
[2021-10-08] MEDS: Estradiol 1 MG Tab PO SCH ×2 (08:14→20:58)
[2021-10-08] MEDS: Citalopram 20 MG Tab PO SCH (08:14)
[2021-10-08] MEDS: Lidocaine 4% 1 each Patch TOP SCH (08:14)
[2021-10-08] MEDS: Biotin 5 MG Cap PO SCH (08:14)
[2021-10-08] MEDS: Acetaminophen 500 MG Tab PO SCH ×3 (08:15→20:57)
[2021-10-08] MEDS: Venlafaxine 75 MG Cap.ER PO SCH (08:15)
[2021-10-09] MEDS: ceFAZolin 2 GM in Premix Bag 1 BAG IV SCH ×2 (08:05→16:54)
[2021-10-09] MEDS: Sodium Chloride 0.9% 10 ML Syringe FLUSH PRN ×4 (08:06→17:38)
[2021-10-09] MEDS: Citalopram 20 MG Tab PO SCH (08:16)
[2021-10-09] MEDS: Venlafaxine 75 MG Cap.ER PO SCH (08:16)
[2021-10-09] MEDS: Biotin 5 MG Cap PO SCH (08:17)
[2021-10-09] MEDS: Lidocaine 4% 1 each Patch TOP SCH (08:35)
[2021-10-09] MEDS: Estradiol 1 MG Tab PO SCH ×2 (08:35→20:30)
[2021-10-09] MEDS: Spironolactone 50 MG Tab PO SCH ×2 (08:35→20:30)
[2021-10-09] MEDS: Acetaminophen 500 MG Tab PO SCH ×3 (08:43→20:31)
[2021-10-10] MEDS: Sodium Chloride 0.9% 10 ML Syringe FLUSH PRN ×3 (00:38→17:25)
[2021-10-10] MEDS: ceFAZolin 2 GM in Premix Bag 1 BAG IV SCH ×5 (07:45→23:57)
[2021-10-10] MEDS: Citalopram 20 MG Tab PO SCH (08:18)
[2021-10-10] MEDS: Venlafaxine 75 MG Cap.ER PO SCH (08:18)
[2021-10-10] MEDS: Spironolactone 50 MG Tab PO SCH ×2 (10:46→20:45)
[2021-10-10] MEDS: Estradiol 1 MG Tab PO SCH ×2 (10:46→20:45)
[2021-10-10] MEDS: Acetaminophen 500 MG Tab PO SCH ×3 (10:46→20:45)
[2021-10-10] MEDS: Biotin 5 MG Cap PO SCH (10:46)
[2021-10-10] MEDS: Lidocaine 4% 1 each Patch TOP SCH (10:46)
[2021-10-10 16:13] LABS: FENTANYL SCREEN Negative ng/mL (CUTOFF:2.0)
[2021-10-11] MEDS: Sodium Chloride 0.9% 10 ML Syringe FLUSH PRN (00:35)
[2021-10-11] MEDS: ceFAZolin 2 GM in Premix Bag 1 BAG IV SCH ×2 (07:42→16:49)
[2021-10-11] MEDS: Citalopram 20 MG Tab PO SCH (08:07)
[2021-10-11] MEDS: Venlafaxine 75 MG Cap.ER PO SCH (08:07)
[2021-10-11] MEDS: Estradiol 1 MG Tab PO SCH ×2 (08:08→20:45)
[2021-10-11] MEDS: Lidocaine 4% 1 each Patch TOP SCH (08:08)
[2021-10-11] MEDS: Spironolactone 50 MG Tab PO SCH ×2 (08:08→20:45)
[2021-10-11] MEDS: Acetaminophen 500 MG Tab PO SCH ×3 (08:08→20:46)
[2021-10-11] MEDS: Biotin 5 MG Cap PO SCH (08:08)
[2021-10-12] MEDS: Sodium Chloride 0.9% 10 ML Syringe FLUSH PRN (00:39)
[2021-10-12] MEDS: ceFAZolin 2 GM in Premix Bag 1 BAG IV SCH ×4 (08:34→16:45)
[2021-10-12] MEDS: Venlafaxine 75 MG Cap.ER PO SCH (09:05)
[2021-10-12] MEDS: Citalopram 20 MG Tab PO SCH (09:05)
[2021-10-12] MEDS: Lidocaine 4% 1 each Patch TOP SCH (10:31)
[2021-10-12] MEDS: Biotin 5 MG Cap PO SCH (10:31)
[2021-10-12] MEDS: Estradiol 1 MG Tab PO SCH ×2 (10:31→20:17)
[2021-10-12] MEDS: Spironolactone 50 MG Tab PO SCH ×2 (10:31→20:17)
[2021-10-12] MEDS: Acetaminophen 500 MG Tab PO SCH ×3 (10:32→20:16)
[2021-10-13] MEDS: ceFAZolin 2 GM in Premix Bag 1 BAG IV SCH ×4 (00:09→23:30)
[2021-10-13] MEDS: Sodium Chloride 0.9% 10 ML Syringe FLUSH PRN ×7 (00:50→23:32)
[2021-10-13] MEDS: Lidocaine 4% 1 each Patch TOP SCH (08:08)
[2021-10-13] MEDS: Spironolactone 50 MG Tab PO SCH (08:08)
[2021-10-13] MEDS: Estradiol 1 MG Tab PO SCH (08:09)
[2021-10-13] MEDS: Biotin 5 MG Cap PO SCH (08:10)
[2021-10-13] MEDS: Citalopram 20 MG Tab PO SCH (08:10)
[2021-10-13] MEDS: Venlafaxine 75 MG Cap.ER PO SCH (08:10)
[2021-10-13] MEDS: Acetaminophen 500 MG Tab PO SCH (08:11)
[2021-10-13] MEDS ORDERED: Acetaminophen 500 MG Tab PO PRN (10:00)
[2021-10-14] MEDS: ceFAZolin 2 GM in Premix Bag 1 BAG IV SCH ×3 (08:04→23:59)
[2021-10-14] MEDS: Citalopram 20 MG Tab PO SCH (08:18)
[2021-10-14] MEDS: Venlafaxine 75 MG Cap.ER PO SCH (08:18)
[2021-10-14] MEDS: Sodium Chloride 0.9% 10 ML Syringe FLUSH PRN ×4 (08:35→23:58)
[2021-10-15] MEDS: Sodium Chloride 0.9% 10 ML Syringe FLUSH PRN ×3 (00:36→17:24)
[2021-10-15] MEDS: ceFAZolin 2 GM in Premix Bag 1 BAG IV SCH ×3 (08:09→23:27)
[2021-10-15] MEDS: Venlafaxine 75 MG Cap.ER PO SCH (08:10)
[2021-10-15] MEDS: Citalopram 20 MG Tab PO SCH (08:10)
[2021-10-16] MEDS: Sodium Chloride 0.9% 10 ML Syringe FLUSH PRN ×3 (00:01→17:04)
[2021-10-16] MEDS: ceFAZolin 2 GM in Premix Bag 1 BAG IV SCH ×2 (08:18→17:05)
[2021-10-16] MEDS: Citalopram 20 MG Tab PO SCH (08:20)
[2021-10-16] MEDS: Venlafaxine 75 MG Cap.ER PO SCH (08:20)
[2021-10-17] MEDS: ceFAZolin 2 GM in Premix Bag 1 BAG IV SCH ×3 (00:14→16:50)
[2021-10-17] MEDS: Sodium Chloride 0.9% 10 ML Syringe FLUSH PRN ×5 (00:59→17:20)
[2021-10-17] MEDS: Venlafaxine 75 MG Cap.ER PO SCH (09:25)
[2021-10-17] MEDS: Citalopram 20 MG Tab PO SCH (09:25)
[2021-10-17 10:01] VITALS: BP 119/44; PULSE 72
== END 2021-10-17 20:15 | disposition left against medical advice (07) | DRG 96 ==
LOC: FB.MS 13:28 → EDSEX 13:28
PROVIDERS: ADMIT Student in an Organized Health Care Education/Training Program; ATTEND Family Medicine
DX: G06.1 Intraspinal abscess and granuloma (principal); M54.9 Dorsalgia, unspecified; F10.10 Alcohol abuse, uncomplicated; J45.909 Unspecified asthma, uncomplicated; F90.9 Attention-deficit hyperactivity disorder, unspecified type; F41.9 Anxiety disorder, unspecified; F32.A Depression, unspecified; F19.10 Other psychoactive substance abuse, uncomplicated; F64.9 Gender identity disorder, unspecified; Z79.899 Other long term (current) drug therapy; Z87.442 Personal history of urinary calculi; Z87.828 Personal history of other (healed) physical injury and trauma
CPT/HCPCS: 36415; 36568; 80307; 82565; 84460; 85027; 93005; A9270-GY; J0690; J1642; J1885; J3490

== ENCOUNTER 2022-01-29 20:44 | Emergency (ER) | payer OTHER, MEDICAID ==
[2022-01-29] MEDS ORDERED: Iopamidol 755 Mg/ML 100 ML Bottle IV ONE ×2 (21:11→22:29)
[2022-01-29 21:15] LABS: ESTIMATED GFR 106 mL/min (>60)
[2022-01-30 01:30] VITALS: PULSE 82
[2022-01-30 01:32] VITALS: BP 135/55
== END 2022-01-30 00:25 | disposition home or self-care (01) ==
LOC: FB.ED 20:44
DX: S40.021A Contusion of right upper arm, initial encounter (principal); S80.02XA Contusion of left knee, initial encounter; S80.01XA Contusion of right knee, initial encounter; S80.212A Abrasion, left knee, initial encounter; Z79.899 Other long term (current) drug therapy; V49.50XA Passenger injured in collision with unspecified motor vehicles in traffic accident, initial encounter; Y92.410 Unspecified street and highway as the place of occurrence of the external cause
CPT/HCPCS: 36415; 70450; 71260; 72125; 73070; 73090; 73130; 73560; 74177; 80053; 80307; 81001; 83690; 83735; 85025; 99283; 99285; Q9967

== ENCOUNTER 2022-06-08 17:50 | Emergency (ER) | payer MEDICAID ==
[2022-06-08 18:39] VITALS: BP 115/63; PULSE 70
== END 2022-06-08 18:35 | disposition home or self-care (01) ==
LOC: FB.ED 17:50
DX: S60.211A Contusion of right wrist, initial encounter (principal); J45.909 Unspecified asthma, uncomplicated; Z79.899 Other long term (current) drug therapy
CPT/HCPCS: 73110-RT; 99283

== ENCOUNTER 2022-08-17 04:18 | Emergency (ER) | payer MEDICAID ==
[2022-08-17] MEDS ORDERED: Ondansetron 4 MG/2 ML SDV IVPUSH ONE (04:37)
[2022-08-17] MEDS ORDERED: Sodium Chloride 0.9% 10 ML Syringe FLUSH PRN (04:37)
[2022-08-17] MEDS ORDERED: Sodium Chloride 0.9% 1,000 ML IV ONE (04:37)
[2022-08-17 05:00] LABS: ESTIMATED GFR 106 mL/min (>60)
[2022-08-17] MEDS ORDERED: Pantoprazole 40 MG Vial IVPUSH ONE (05:16)
[2022-08-17] MEDS ORDERED: Iopamidol 755 Mg/ML 100 ML Bottle IV ONE (07:27)
[2022-08-17 08:29] VITALS: BP 121/72; PULSE 85
== END 2022-08-17 08:25 | disposition home or self-care (01) ==
LOC: FB.ED 04:18
DX: K52.9 Noninfective gastroenteritis and colitis, unspecified (principal)
CPT/HCPCS: 36415; 74177; 80053; 81001; 82150; 83605; 83690; 85025; 86140; 87086; 96361; 96374; 96375; 99283; 99284-25; C9113; J2405; J3490; J7030; Q9967

== ENCOUNTER 2023-06-28 13:38 | Emergency (ER) | payer MEDICAID ==
[2023-06-28] MEDS ORDERED: Ketorolac 30 MG/ML SDV IM ONE (14:36)
[2023-06-28] MEDS ORDERED: hydrOXYzine HCl 50 MG/ML SDV IM ONE (14:36)
[2023-06-28 16:41] VITALS: BP 112/62; PULSE 69
== END 2023-06-28 15:52 | disposition home or self-care (01) ==
LOC: FB.ED 13:38
DX: J01.01 Acute recurrent maxillary sinusitis (principal); J45.909 Unspecified asthma, uncomplicated; Z88.2 Allergy status to sulfonamides; Z79.899 Other long term (current) drug therapy
CPT/HCPCS: 70486; 96372; 99284; J1885; J3410

== ENCOUNTER 2024-03-07 23:07 | Emergency (ER) | payer BC, MEDICAID ==
[2024-03-07 23:23] VITALS: BP 125/77; PULSE 85
[2024-03-07] MEDS: Ketorolac 30 MG/ML SDV IM ONE (23:38)
[2024-03-07] MEDS: Oxymetazoline 0.05% Nasal Spray 30 ML Bottle NAS ONE (23:52)
== END 2024-03-08 | disposition home or self-care (01) ==
LOC: FB.ED 23:07
DX: J34.89 Other specified disorders of nose and nasal sinuses (principal); J45.909 Unspecified asthma, uncomplicated; Z79.899 Other long term (current) drug therapy
CPT/HCPCS: 96372; 99283; A9270; J1885

== ENCOUNTER 2025-06-13 08:02 | Day surgery (SDC) | payer MEDICAID ==
[~2025-06-13 08:02] MED LIST: Sodium Chloride 0.9% 10 ML Syringe FLUSH PRN
[2025-06-13] MEDS ORDERED: Ketamine 500 mg/10 ML MDV IV ONE (08:03)
[2025-06-13] MEDS ORDERED: Propofol 200 MG/20 ML SDV IV ONE (08:03)
[2025-06-13] MEDS ORDERED: Midazolam 1 MG/ML 2 ML SDV IV ONE (08:03)
[2025-06-13 08:28] VITALS: BP 111/87; PULSE 113
[2025-06-13] MEDS: Lactated Ringers 1,000 ML IV SCH (08:46)
== END 2025-06-13 12:00 | disposition home or self-care (01) ==
LOC: FB.SDS 08:02
PROVIDERS: ATTEND Surgery
DX: K63.5 Polyp of colon (principal); K62.1 Rectal polyp; K57.31 Diverticulosis of large intestine without perforation or abscess with bleeding; K63.89 Other specified diseases of intestine; Z87.891 Personal history of nicotine dependence; Z79.899 Other long term (current) drug therapy
CPT/HCPCS: 00811; 45384; 88305; A9270; J2003; J2250; J2704; J3490; J7120